=== PATIENT | female | born 1940 | race American Indian/Alaskan Native ===

== ENCOUNTER 2016-08-17 14:05 | Emergency (ER) | payer OTHER, MEDICARE ==
[2016-08-17 15:52] LABS: Anion Gap 18 mmol/L; BUN/Creatinine Ratio 16.66; Blood Urea Nitrogen 20 mg/dL (7-17); Calcium 9.1 mg/dL (8.4-10.2); Carbon Dioxide 24 mmol/L (22-30); Chloride 102.8 mmol/L (98-107); Glucose 77 mg/dL (65-100); Sodium 141 mmol/L (137-145)
[2016-08-17 16:02] LABS: Basophils % (Auto) 0.1 % (0.0-1.8); Eosinophils % (Auto) 1.3 % (0.0-4.3); Hematocrit 35.6 % (30.3-42.9); Hemoglobin 11.5 gm/dl (10.1-14.3); Mean Corpuscular HGB Conc 32 % (30-34); Mean Corpuscular Volume 80 fl (79-97); Platelet Count 172 K/mm3 (140-440); Red Blood Count 4.47 M/mm3 (3.65-5.03); Red Cell Distribution Width 15.8 % (13.2-15.2); White Blood Count 7.1 K/mm3 (4.5-11.0)
[2016-08-17 16:10] LABS: Mean Corpuscular Hemoglobin 26 pg (28-32)
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
[2016-08-17 22:48] VITALS: BP 156/86
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
== END 2016-08-17 22:30 | disposition home or self-care (01) ==
LOC: ED 14:05
DX: M25.532 Pain in left wrist (principal); M25.531 Pain in right wrist; M25.562 Pain in left knee; I10 Essential (primary) hypertension; Z86.73 Personal history of transient ischemic attack (TIA), and cerebral infarction without residual deficits; Z87.891 Personal history of nicotine dependence; V49.49XA Driver injured in collision with other motor vehicles in traffic accident, initial encounter; Y93.89 Activity, other specified; Y99.8 Other external cause status; Y92.488 Other paved roadways as the place of occurrence of the external cause
CPT/HCPCS: 36415; 80048; 84484; 85025; 93005; 93010

== ENCOUNTER 2017-03-16 15:09 | Emergency (ER) | payer MEDICARE ==
[2017-03-16 17:26] LABS: Basophils % (Auto) 0.2 % (0.0-1.8); Eosinophils # (Auto) 0.2 K/mm3 (0.0-0.4); Eosinophils % (Auto) 2.5 % (0.0-4.3); Hematocrit 37.6 % (30.3-42.9); Hemoglobin 12.3 gm/dl (10.1-14.3); Lymphocytes # (Auto) 1.7 K/mm3 (1.2-5.4); Mean Corpuscular HGB Conc 33 % (30-34); Mean Corpuscular Hemoglobin 26 pg (28-32); Mean Corpuscular Volume 80 fl (79-97); Monocytes # (Auto) 0.7 K/mm3 (0.0-0.8); Monocytes % (Auto) 9.2 % (0.0-7.3); Platelet Count 219 K/mm3 (140-440); Red Blood Count 4.69 M/mm3 (3.65-5.03); Red Cell Distribution Width 15.1 % (13.2-15.2)
[2017-03-16 17:48] LABS: Alanine Aminotransferase 11 units/L (7-56); Albumin 3.8 g/dL (3.9-5); BUN/Creatinine Ratio 16; Blood Urea Nitrogen 16 mg/dL (7-17); Calcium 9.3 mg/dL (8.4-10.2); Hemolysis Index 7
--- NOTE | 2017-03-17 01:12 | Emergency Department Report ---
ED General Adult HPI - General Chief complaint: Neuro Symptoms/Deficit Stated complaint: RIGHT FOOT PAIN Time Seen by Provider: 03/17/17 00:28 Source: patient Mode of arrival: Wheelchair Limitations: No Limitations - History of Present Illness Initial comments: Complaints right foot has been numb for 3 days not sure if it was sudden in onset does hx history of Sirena camara is currently on Ahlquist here for evaluation of numbness to the right foot, neg dvt study earlier, no cp no fever no color or temp changes to feet. no motor c/o, no urinary retention -: days(s), unknown - Related Data Previous Rx's Medication Instructions Recorded Last Taken Type Metoprolol [Lopressor TAB] 25 mg PO BID #60 tablet 01/23/15 Unknown Rx risperiDONE [RisperDAL] 0.25 mg PO BID #60 tablet 01/23/15 Unknown Rx Ibuprofen [Motrin] 400 mg PO Q8H PRN #15 tablet 03/17/17 Unknown Rx Allergies Allergy/AdvReac Type Severity Reaction Status Date / Time No Known Allergies Allergy Verified 03/16/17 16:38 ED Review of Systems ROS: Stated complaint: RIGHT FOOT PAIN Other details as noted in HPI Comment: All other systems reviewed and negative Constitutional: denies: diaphoresis, fever, malaise ENT: denies: dental pain, hearing loss, epistaxis Respiratory: denies: shortness of breath, SOB with exertion, SOB at rest, stridor Cardiovascular: denies: chest pain, palpitations, dyspnea on exertion, orthopnea , edema, syncope, paroxysmal nocturnal dyspnea Gastrointestinal: denies: abdominal pain, nausea, vomiting, diarrhea, constipation, hematemesis, melena, hematochezia Genitourinary: other (no incontinence no ). denies: dysuria, frequency, hematuria, discharge Skin: denies: rash, lesions, change in color, change in hair/nails, pruritus Neurological: numbness, paresthesias. denies: headache, weakness, abnormal gait , vertigo Psychiatric: denies: auditory hallucinations, visual hallucinations, suicidal thoughts Hematological/Lymphatic: denies: easy bruising ED Past Medical Hx - Past Medical History Hx Hypertension: Yes Hx CVA: Yes Hx Arthritis: Yes Additional medical history: "blood clots". afib - Surgical History Hx Appendectomy: Yes Hx Breast Surgery: Yes (Lumpectomy at 16 y/o) Additional Surgical History: cataract surgery 1 month ago - Social History Smoking Status: Never Smoker Substance Use Type: None - Medications Home Medications: Home Medications Medication Instructions Recorded Confirmed Last Taken Type Metoprolol [Lopressor TAB] 25 mg PO BID #60 tablet 01/23/15 Unknown Rx risperiDONE [RisperDAL] 0.25 mg PO BID #60 tablet 01/23/15 Unknown Rx Ibuprofen [Motrin] 400 mg PO Q8H PRN #15 tablet 03/17/17 Unknown Rx ED Physical Exam - General Limitations: No Limitations General appearance: alert, in no apparent distress - Head Head exam: Present: atraumatic, normocephalic - Eye Eye exam: Present: normal appearance, PERRL, EOMI - ENT ENT exam: Present: normal exam, normal orophraynx - Neck Neck exam: Present: normal inspection. Absent: tenderness, meningismus - Respiratory Respiratory exam: Present: normal lung sounds bilaterally. Absent: respiratory distress, wheezes, rales, rhonchi, stridor, chest wall tenderness, accessory muscle use, decreased breath sounds, prolonged expiratory - Cardiovascular Cardiovascular Exam: Present: regular rate, normal rhythm, normal heart sounds. Absent: systolic murmur, diastolic murmur, rubs, gallop - GI/Abdominal GI/Abdominal exam: Present: soft. Absent: distended, tenderness, guarding, rebound, rigid, mass, pulsatile mass - Extremities Exam Extremities exam: Present: normal capillary refill, other (decreased sensory to the dorsum of the right foot L4-L5 dermatome). Absent: pedal edema, joint swelling, calf tenderness - Back Exam Back exam: Present: normal inspection, other (no warmth or erythema). Absent: CVA tenderness (L), muscle spasm, paraspinal tenderness ED Course Vital Signs 03/16/17 16:38 Temperature 99 F Pulse Rate 68 Respiratory 16 Rate Blood Pressure 152/94 O2 Sat by Pulse 98 Oximetry - Reevaluation(s) Reevaluation #1: 03/17/17 04:17 Patient did have a negative Doppler for DVT. She is on a list. We did initially consider arterial insufficiency however the patient has no extreme color temperature chains would suggest perfusion abnormality. Symptoms did seem to be radicular CT of the lumbar was obtained this does show pinched nerve ED Medical Decision Making - Lab Data Result diagrams: 03/16/17 16:55 01/12/18 16:55 - Radiology Data Radiology results: report reviewed - Medical Decision Making Toes are downgoing no evidence of spinal cord compressive syndrome at this time patient does however have evidence of lumbar radiculopathy. She is stable for outpatient follow-up with referral to orthopedics abdomen soft nontender without mass Critical care attestation.: If time is entered above; I have spent that time in minutes in the direct care of this critically ill patient, excluding procedure time. ED Disposition Clinical Impression: Lumbar radiculopathy Disposition: - TO HOME OR SELFCARE Is pt being admited?: No Condition: Stable Instructions: Lumbar Radiculopathy (ED) Additional Instructions: Return if new alarming symptoms to the doctor listed Prescriptions: Ibuprofen [Motrin] 400 mg PO Q8H PRN #15 tablet PRN Reason: Pain Referrals: PRIMARY CAREMD [Primary Care Provider] - 3-5 Days ROEL MANRIQUEZ MD [Staff Physician] - 3-5 Days Time of Disposition: 04:21
--- NOTE | 2017-03-17 03:02 | Cat Scan Report ---
FINAL REPORT EXAM: CT L-Spine w/o Contrast CLINICAL INDICATIONS: LEG NUMBNESS FINDINGS: Unenhanced CT of the lumbar spine was performed and data was reformatted in the sagittal and coronal planes. There is a vacuum disc at T11-12. There is a minimal posterior disc bulge at this level which does not result in canal stenosis or nerve root impingement. No fracture is seen in the lumbar spine. At T12-L1, L1-L2, L2-L3 and L3-L4 there are no posterior disc abnormalities. There is no evidence of canal stenosis or nerve root impingement. At L4-L5 there is a vacuum disc. There is 0.5 cm anterolisthesis of L4 and L5. This results in mild right and moderate left foraminal narrowing with suspected mild impingement of the exiting left L4 nerve root. There is facet hypertrophy at this level. At L5-S1 there is a vacuum disc. There is a small posterior disc bulge which does not result in canal stenosis or nerve root impingement. There is considerable endplate sclerosis at this level. There is aortic atherosclerotic change without aneurysmal dilation of the aorta IMPRESSION: NO FRACTURE IS SEEN IN THE LUMBAR SPINE GRADE 1 DEGENERATIVE ANTEROLISTHESIS OF L4 ON L5 WITH SUSPECTED IMPINGEMENT OF EXITING LEFT L4 NERVE ROOT
[2017-03-17 05:06] VITALS: BP 131/79
--- NOTE | 2017-03-18 13:54 | Vascular Lab Report ---
Right Lower Extremity Venous Duplex Study: Reason for Exam: Pain and swelling of the right lower extremity. Comments on the Right: All veins visualized are freely compressible without evidence of internal echogenicity. Flow is spontaneous and phasic throughout. No evidence of acute or chronic thrombus is seen in any of the vessels visualized. A soft tissue change in the right knee area is consistent with a Yancey's cyst. Comments on the Left: A limited duplex study was done of the proximal veins of the left lower extremity. All veins visualized are freely compressible without evidence of internal echogenicity. Flow is spontaneous and phasic throughout. No evidence of acute or chronic thrombus is seen in any of the vessels visualized. Impression: No evidence of acute or chronic deep venous thrombosis in the right lower extremity. A soft tissue change in the right knee area is consistent with a Yancey's cyst.
== END 2017-03-17 05:04 | disposition home or self-care (01) ==
LOC: ED 15:09
DX: M54.16 Radiculopathy, lumbar region (principal); I10 Essential (primary) hypertension; M19.90 Unspecified osteoarthritis, unspecified site; Z86.73 Personal history of transient ischemic attack (TIA), and cerebral infarction without residual deficits
CPT/HCPCS: 36415; 72131; 80053; 85025; 99284

== ENCOUNTER 2017-04-30 17:20 | Outpatient (CLI) | payer MEDICARE ==
--- NOTE | 2017-05-01 12:25 | Magnetic Resonance Report ---
MRI LUMBAR SPINE WITHOUT CONTRAST HISTORY: Low back pain. TECHNIQUE: axial T1, T2. sagittal T1,T2, STIR. COMPARISON: none. FINDINGS: The conus terminates at L1. No signal abnormality or mass. The cauda equina is within normal limits. No central canal stenosis. 5 mm anterolisthesis of L4 with respect to L5 is identified which appears to be secondary to degenerative facet arthropathy. No pars defect is identified. The remaining lumbar vertebra are normal in alignment. No evidence for compression deformity or bone lesion. There is moderate diffuse disc desiccation. Moderate to severe disc space narrowing is noted at the lowest 2 levels. There is diffuse facet arthropathy which is most pronounced at L4-5. L1-2: No significant abnormality. L2-3: No significant abnormality. L3-4: A focal midline annular tear is identified. No associated protrusion. Mild facet arthropathy. L4-5: Mild diffuse posterior bulging disc lateralizes to the left side. Severe hypertrophic facet arthropathy. Mild hypertrophy of ligamentum flavum. Left neural foraminal narrowing is estimated at 25-50%. L5-S1: Severe disc space narrowing with circumferential spurring. A large right paracentral disc protrusion is identified which exerts mass effect on the right S1 nerve root within the spinal canal. Mild facet arthropathy. Bilateral neural foraminal narrowing is estimated at 25-50%. IMPRESSION: Multilevel lumbar spondylosis. Grade 1 anterolisthesis of L4 with respect L5. Large right paracentral disc protrusion with mass effect on the right S1 nerve root as described. Please correlate with the patient's clinical presentation.
== END 2017-04-30 17:21 | disposition home or self-care (01) ==
LOC: MRI 17:20
PROVIDERS: ATTEND Orthopaedic Surgery
DX: M47.896 Other spondylosis, lumbar region (principal); M51.36 Other intervertebral disc degeneration, lumbar region; M12.88 Other specific arthropathies, not elsewhere classified, other specified site; M24.28 Disorder of ligament, vertebrae
CPT/HCPCS: 72148

== ENCOUNTER 2020-05-22 11:01 | Inpatient (IN) | payer MEDICARE ==
--- NOTE | 2020-05-22 11:39 | Emergency Department Report ---
ED Altered Mental Status HPI - General Chief Complaint: Altered Mental Status Stated Complaint: AMS Time Seen by Provider: 05/22/20 11:13 Source: EMS Mode of arrival: Stretcher Limitations: Altered Mental Status - History of Present Illness Initial Comments: 79-year-old female, history of hypertension, A. fib, CVA, anxiety, presents to ED with altered mental status. Per EMS, reports patient was fine she woke up this morning. Talking normally. Patient went to lay back in bed. When lucianaban checked on her at around 10:30 AM patient was unresponsive. Upon EMS arrival, patient does not respond, eyes are closed. Patient has a gag reflex and seems to fight against anyone attempting to open her eyes. Accu-Chek was normal. Patient currently on Eliquis. Stroke alert called. MD Complaint: altered mental status -: minutes(s) (45) Time: 10:30 Severity: severe Consistency of Symptoms: constant Context: unknown - Related Data Previous Rx's Medication Instructions Recorded Last Taken Type Metoprolol [Lopressor TAB] 25 mg PO BID #60 tablet 01/23/15 Unknown Rx risperiDONE [RisperDAL] 0.25 mg PO BID #60 tablet 01/23/15 Unknown Rx Ibuprofen [Motrin] 400 mg PO Q8H PRN #15 tablet 03/17/17 Unknown Rx Allergies Allergy/AdvReac Type Severity Reaction Status Date / Time No Known Allergies Allergy Verified 03/16/17 16:38 ED Review of Systems ROS: Stated complaint: AMS Other details as noted in HPI Comment: Unobtainable due to pts medical conditions ED Past Medical Hx - Past Medical History Hx Hypertension: Yes Hx CVA: Yes Hx Arthritis: Yes Additional medical history: "blood clots". afib - Surgical History Hx Appendectomy: Yes Hx Breast Surgery: Yes (Lumpectomy at 16 y/o) Additional Surgical History: cataract surgery 1 month ago - Social History Smoking Status: Never Smoker Substance Use Type: None - Medications Home Medications: Home Medications Medication Instructions Recorded Confirmed Last Taken Type Metoprolol [Lopressor TAB] 25 mg PO BID #60 tablet 01/23/15 Unknown Rx risperiDONE [RisperDAL] 0.25 mg PO BID #60 tablet 01/23/15 Unknown Rx Ibuprofen [Motrin] 400 mg PO Q8H PRN #15 tablet 03/17/17 Unknown Rx ED Physical Exam - General Limitations: Altered Mental Status General appearance: obtunded - Head Head exam: Present: atraumatic, normocephalic - Eye Eye exam: Present: normal appearance, PERRL - ENT ENT exam: Present: mucous membranes moist - Neck Neck exam: Present: normal inspection - Respiratory Respiratory exam: Present: normal lung sounds bilaterally. Absent: respiratory distress - Cardiovascular Cardiovascular Exam: Present: normal rhythm, irregular rhythm - GI/Abdominal GI/Abdominal exam: Present: soft. Absent: distended, tenderness - Extremities Exam Extremities exam: Present: normal inspection - Neurological Exam Neurological exam: Present: altered, other (eyes closed, but fluttering; pt res ists me attempting to open eyes) - Skin Skin exam: Present: warm, dry, intact, normal color - Assessment Assessment Interval: Baseline - Level of Consciousness 1a. Level of Consciousness: resp stimuli/obtunded - LOC Questions 1b. LOC Questions: aphasic - LOC Command 1c. LOC Commands: performs no tasks correctly - Best Gaze 2. Best Gaze: normal - Visual 3. Visual: no visual loss - Facial Palsy 4. Facial Palsy: normal symmetrical movement - Motor Arm 5a. Motor Arm Left: no gravity effort 5b. Motor Arm Right: no gravity effort - Motor Leg 6a. Motor Leg Left: no gravity effort 6b. Motor Leg Right: no gravity effort - Limb Ataxia 7. Limb Ataxia: absent - Sensory 8. Sensory: normal - Best Language 9. Best Language: mute/global aphasia - Dysarthria 10. Dysarthria: normal - Extinction and Inattention 11. Extinction/Inattention: no abnormality - Scoring Total Score: 21 Stroke Severity: Severe Stroke ED Course Vital Signs 05/22/20 05/22/20 05/22/20 11:11 11:44 11:45 Temperature Pulse Rate 79 Respiratory 16 Rate Blood Pressure 183/106 O2 Sat by Pulse 97 99 98 Oximetry 05/22/20 05/22/20 05/22/20 11:52 12:00 12:16 Temperature 97.5 F L Pulse Rate Respiratory Rate Blood Pressure 165/106 167/114 O2 Sat by Pulse 97 97 Oximetry 05/22/20 05/22/20 05/22/20 12:30 12:46 13:00 Temperature Pulse Rate Respiratory Rate Blood Pressure 174/107 171/99 171/99 O2 Sat by Pulse 93 98 96 Oximetry 05/22/20 05/22/20 05/22/20 13:16 13:30 13:33 Temperature Pulse Rate 123 H Respiratory Rate Blood Pressure 175/106 142/87 170/110 O2 Sat by Pulse 97 96 Oximetry 05/22/20 05/22/20 05/22/20 13:46 14:00 14:16 Temperature Pulse Rate Respiratory Rate Blood Pressure 153/90 153/92 144/84 O2 Sat by Pulse 97 96 97 Oximetry 05/22/20 05/22/20 05/22/20 14:30 14:46 15:00 Temperature Pulse Rate Respiratory Rate Blood Pressure 158/108 137/91 139/86 O2 Sat by Pulse 96 97 97 Oximetry - Reevaluation(s) Reevaluation #1: 05/22/20 11:30 Unable to reach patient's on listed phone numbers: [phone] and [phone] Reevaluation #2: 05/22/20 13:20 Able to speak with patient's . States patient is currently seeing a neurologist for dementia. He reports some days patient's memory is normal and some days she is forgetful. States patient has no deficits from her previous CVA. reports this unresponsiveness has never happened before. There is a diagnosis of psychosis and paranoia in the chart, however states she has not had any recent episodes of this. He denies any other psychiatric diagnoses. States she is not taking any psych medications. Reevaluation #3: 05/22/20 13:29 No improvement with D50 or narcan. No withdrawal during ABG, however, pt's eyes fluttering more while closed and heart rate increased. - Consultations Consultation #1: 05/22/20 11:42 Spoke with teleneurologist. Patient not a candidate for TPA secondary to her taking Eliquis. He has reviewed the scans. No evidence of hemorrhage or large vessel occlusion, however will await official radiology read. - Lab Data Result diagrams: 05/22/20 11:47 05/22/20 11:47 Lab Results 05/22/20 05/22/20 05/22/20 Range/Units 11:47 11:47 11:47 WBC 5.1 (4.5-11.0) K/mm3 RBC 4.89 (3.65-5.03) M/mm3 Hgb 12.8 (10.1-14.3) gm/dl Hct 39.2 (30.3-42.9) % MCV 80 (79-97) fl MCH 26 L (28-32) pg MCHC 33 (30-34) % RDW 15.9 H (13.2-15.2) % Plt Count 150 (140-440) K/mm3 Lymph % (Auto) 19.8 (13.4-35.0) % Campbell % (Auto) 7.4 H (0.0-7.3) % Eos % (Auto) 0.3 (0.0-4.3) % Baso % (Auto) 0.1 (0.0-1.8) % Lymph # (Auto) 1.0 L (1.2-5.4) K/mm3 Campbell # (Auto) 0.4 (0.0-0.8) K/mm3 Eos # (Auto) 0.0 (0.0-0.4) K/mm3 Baso # (Auto) 0.0 (0.0-0.1) K/mm3 Seg Neutrophils % 72.4 H (40.0-70.0) % Seg Neutrophils # 3.7 (1.8-7.7) K/mm3 PT 13.5 (12.2-14.9) Sec. INR 1.05 (0.87-1.13) APTT 23.5 L (24.2-36.6) Sec. Thrombin Time 17.0 (15.1-19.6) Sec. Sodium 133 L (137-145) mmol/L Potassium 4.1 (3.6-5.0) mmol/L Chloride 97.4 L (98-107) mmol/L Carbon Dioxide 22 (22-30) mmol/L Anion Gap 18 mmol/L BUN 22 H (7-17) mg/dL Creatinine 1.5 H (0.6-1.2) mg/dL Estimated GFR 40 ml/min BUN/Creatinine Ratio 15 % Glucose 95 (65-100) mg/dL POC Glucose (70-105) mg/dL Lactic Acid (0.7-2.0) mmol/L Calcium 9.2 (8.4-10.2) mg/dL Total Bilirubin 0.50 (0.1-1.2) mg/dL AST 19 (5-40) units/L ALT 12 (7-56) units/L Alkaline Phosphatase 81 (35-129) units/L Total Creatine Kinase 176 H (30-135) units/L CK-MB (CK-2) 2.3 (0.0-4.0) ng/mL CK-MB (CK-2) Rel Index 1.3 (0-4) Troponin T < 0.010 (0.00-0.029) ng/mL Total Protein 7.3 (6.3-8.2) g/dL Albumin 3.8 L (3.9-5) g/dL Albumin/Globulin Ratio 1.1 % Urine Color (Yellow) Urine Turbidity (Clear) Urine pH (5.0-7.0) Ur Specific [place] (1.003-1.030) Urine Protein (Negative) mg/dL Urine Glucose (UA) (Negative) mg/dL Urine Ketones (Negative) mg/dL Urine Blood (Negative) Urine Nitrite (Negative) Urine Bilirubin (Negative) Urine Urobilinogen (<2.0) mg/dL Ur Leukocyte Esterase (Negative) Urine WBC (Auto) (0.0-6.0) /HPF Urine RBC (Auto) (0.0-6.0) /HPF Urine Mucus /HPF Salicylates (2.8-20.0) mg/dL Urine Opiates Screen Urine Methadone Screen Acetaminophen (10.0-30.0) ug/mL Ur Barbiturates Screen Ur Phencyclidine Scrn Ur Amphetamines Screen U Benzodiazepines Scrn Urine Cocaine Screen U Marijuana (THC) Screen Drugs of Abuse Note Plasma/Serum Alcohol (0-0.07) % 05/22/20 05/22/20 05/22/20 Range/Units 11:47 11:47 11:47 WBC (4.5-11.0) K/mm3 RBC (3.65-5.03) M/mm3 Hgb (10.1-14.3) gm/dl Hct (30.3-42.9) % MCV (79-97) fl MCH (28-32) pg MCHC (30-34) % RDW (13.2-15.2) % Plt Count (140-440) K/mm3 Lymph % (Auto) (13.4-35.0) % Campbell % (Auto) (0.0-7.3) % Eos % (Auto) (0.0-4.3) % Baso % (Auto) (0.0-1.8) % Lymph # (Auto) (1.2-5.4) K/mm3 Campbell # (Auto) (0.0-0.8) K/mm3 Eos # (Auto) (0.0-0.4) K/mm3 Baso # (Auto) (0.0-0.1) K/mm3 Seg Neutrophils % (40.0-70.0) % Seg Neutrophils # (1.8-7.7) K/mm3 PT (12.2-14.9) Sec. INR (0.87-1.13) APTT (24.2-36.6) Sec. Thrombin Time (15.1-19.6) Sec. Sodium (137-145) mmol/L Potassium (3.6-5.0) mmol/L Chloride (98-107) mmol/L Carbon Dioxide (22-30) mmol/L Anion Gap mmol/L BUN (7-17) mg/dL Creatinine (0.6-1.2) mg/dL Estimated GFR ml/min BUN/Creatinine Ratio % Glucose (65-100) mg/dL POC Glucose (70-105) mg/dL Lactic Acid (0.7-2.0) mmol/L Calcium (8.4-10.2) mg/dL Total Bilirubin (0.1-1.2) mg/dL AST (5-40) units/L ALT (7-56) units/L Alkaline Phosphatase (35-129) units/L Total Creatine Kinase (30-135) units/L CK-MB (CK-2) (0.0-4.0) ng/mL CK-MB (CK-2) Rel Index (0-4) Troponin T (0.00-0.029) ng/mL Total Protein (6.3-8.2) g/dL Albumin (3.9-5) g/dL Albumin/Globulin Ratio % Urine Color (Yellow) Urine Turbidity (Clear) Urine pH (5.0-7.0) Ur Specific [place] (1.003-1.030) Urine Protein (Negative) mg/dL Urine Glucose (UA) (Negative) mg/dL Urine Ketones (Negative) mg/dL Urine Blood (Negative) Urine Nitrite (Negative) Urine Bilirubin (Negative) Urine Urobilinogen (<2.0) mg/dL Ur Leukocyte Esterase (Negative) Urine WBC (Auto) (0.0-6.0) /HPF Urine RBC (Auto) (0.0-6.0) /HPF Urine Mucus /HPF Salicylates 0.3 L (2.8-20.0) mg/dL Urine Opiates Screen Urine Methadone Screen Acetaminophen 5.0 L (10.0-30.0) ug/mL Ur Barbiturates Screen Ur Phencyclidine Scrn Ur Amphetamines Screen U Benzodiazepines Scrn Urine Cocaine Screen U Marijuana (THC) Screen Drugs of Abuse Note Plasma/Serum Alcohol < 0.01 (0-0.07) % 05/22/20 05/22/20 05/22/20 Range/Units 11:47 12:06 12:06 WBC (4.5-11.0) K/mm3 RBC (3.65-5.03) M/mm3 Hgb (10.1-14.3) gm/dl Hct (30.3-42.9) % MCV (79-97) fl MCH (28-32) pg MCHC (30-34) % RDW (13.2-15.2) % Plt Count (140-440) K/mm3 Lymph % (Auto) (13.4-35.0) % Campbell % (Auto) (0.0-7.3) % Eos % (Auto) (0.0-4.3) % Baso % (Auto) (0.0-1.8) % Lymph # (Auto) (1.2-5.4) K/mm3 Campbell # (Auto) (0.0-0.8) K/mm3 Eos # (Auto) (0.0-0.4) K/mm3 Baso # (Auto) (0.0-0.1) K/mm3 Seg Neutrophils % (40.0-70.0) % Seg Neutrophils # (1.8-7.7) K/mm3 PT (12.2-14.9) Sec. INR (0.87-1.13) APTT (24.2-36.6) Sec. Thrombin Time (15.1-19.6) Sec. Sodium (137-145) mmol/L Potassium (3.6-5.0) mmol/L Chloride (98-107) mmol/L Carbon Dioxide (22-30) mmol/L Anion Gap mmol/L BUN (7-17) mg/dL Creatinine (0.6-1.2) mg/dL Estimated GFR ml/min BUN/Creatinine Ratio % Glucose (65-100) mg/dL POC Glucose (70-105) mg/dL Lactic Acid 1.70 (0.7-2.0) mmol/L Calcium (8.4-10.2) mg/dL Total Bilirubin (0.1-1.2) mg/dL AST (5-40) units/L ALT (7-56) units/L Alkaline Phosphatase (35-129) units/L Total Creatine Kinase (30-135) units/L CK-MB (CK-2) (0.0-4.0) ng/mL CK-MB (CK-2) Rel Index (0-4) Troponin T (0.00-0.029) ng/mL Total Protein (6.3-8.2) g/dL Albumin (3.9-5) g/dL Albumin/Globulin Ratio % Urine Color Yellow (Yellow) Urine Turbidity Clear (Clear) Urine pH 5.0 (5.0-7.0) Ur Specific [place] 1.030 (1.003-1.030) Urine Protein <15 mg/dl (Negative) mg/dL Urine Glucose (UA) Neg (Negative) mg/dL Urine Ketones Tr (Negative) mg/dL Urine Blood Neg (Negative) Urine Nitrite Neg (Negative) Urine Bilirubin Neg (Negative) Urine Urobilinogen < 2.0 (<2.0) mg/dL Ur Leukocyte Esterase Neg (Negative) Urine WBC (Auto) 1.0 (0.0-6.0) /HPF Urine RBC (Auto) < 1.0 (0.0-6.0) /HPF Urine Mucus Few /HPF Salicylates (2.8-20.0) mg/dL Urine Opiates Screen Negative Urine Methadone Screen Negative Acetaminophen (10.0-30.0) ug/mL Ur Barbiturates Screen Negative Ur Phencyclidine Scrn Negative Ur Amphetamines Screen Negative U Benzodiazepines Scrn Negative Urine Cocaine Screen Negative U Marijuana (THC) Screen Negative Drugs of Abuse Note Disclamer Plasma/Serum Alcohol (0-0.07) % 05/22/20 05/22/2021 Range/Units 12:10 13:20 14:14 WBC (4.5-11.0) K/mm3 RBC (3.65-5.03) M/mm3 Hgb (10.1-14.3) gm/dl Hct (30.3-42.9) % MCV (79-97) fl MCH (28-32) pg MCHC (30-34) % RDW (13.2-15.2) % Plt Count (140-440) K/mm3 Lymph % (Auto) (13.4-35.0) % Campbell % (Auto) (0.0-7.3) % Eos % (Auto) (0.0-4.3) % Baso % (Auto) (0.0-1.8) % Lymph # (Auto) (1.2-5.4) K/mm3 Campbell # (Auto) (0.0-0.8) K/mm3 Eos # (Auto) (0.0-0.4) K/mm3 Baso # (Auto) (0.0-0.1) K/mm3 Seg Neutrophils % (40.0-70.0) % Seg Neutrophils # (1.8-7.7) K/mm3 PT (12.2-14.9) Sec. INR (0.87-1.13) APTT (24.2-36.6) Sec. Thrombin Time (15.1-19.6) Sec. Sodium (137-145) mmol/L Potassium (3.6-5.0) mmol/L Chloride (98-107) mmol/L Carbon Dioxide (22-30) mmol/L Anion Gap mmol/L BUN (7-17) mg/dL Creatinine (0.6-1.2) mg/dL Estimated GFR ml/min BUN/Creatinine Ratio % Glucose (65-100) mg/dL POC Glucose 69 L 156 H (70-105) mg/dL Lactic Acid (0.7-2.0) mmol/L Calcium (8.4-10.2) mg/dL Total Bilirubin (0.1-1.2) mg/dL AST (5-40) units/L ALT (7-56) units/L Alkaline Phosphatase (35-129) units/L Total Creatine Kinase (30-135) units/L CK-MB (CK-2) (0.0-4.0) ng/mL CK-MB (CK-2) Rel Index (0-4) Troponin T < 0.010 (0.00-0.029) ng/mL Total Protein (6.3-8.2) g/dL Albumin (3.9-5) g/dL Albumin/Globulin Ratio % Urine Color (Yellow) Urine Turbidity (Clear) Urine pH (5.0-7.0) Ur Specific [place] (1.003-1.030) Urine Protein (Negative) mg/dL Urine Glucose (UA) (Negative) mg/dL Urine Ketones (Negative) mg/dL Urine Blood (Negative) Urine Nitrite (Negative) Urine Bilirubin (Negative) Urine Urobilinogen (<2.0) mg/dL Ur Leukocyte Esterase (Negative) Urine WBC (Auto) (0.0-6.0) /HPF Urine RBC (Auto) (0.0-6.0) /HPF Urine Mucus /HPF Salicylates (2.8-20.0) mg/dL Urine Opiates Screen Urine Methadone Screen Acetaminophen (10.0-30.0) ug/mL Ur Barbiturates Screen Ur Phencyclidine Scrn Ur Amphetamines Screen U Benzodiazepines Scrn Urine Cocaine Screen U Marijuana (THC) Screen Drugs of Abuse Note Plasma/Serum Alcohol (0-0.07) % - EKG Data -: EKG Interpreted by [facility] EKG shows normal: axis, QRS complexes, ST-T waves Rate: tachycardia (rate 104) Interpretation: no acute changes, other (Atrial fibrillation) - Radiology Data Radiology results: report reviewed, image reviewed - Medical Decision Making 79-year-old female presents to the ED with altered mental status since around 10:30 AM. Patient is nonverbal, nonresponsive to stimuli, however patient appears to be protecting her airway. EKG shows A. fib. Blood pressure is elevated. Stroke alert was called. Patient seen and evaluated by teleneurologist. CT head, CTA head and neck are unremarkable for any acute findings such as hemorrhage or large vessel occlusion. Patient is currently taking Eliquis and is not a candidate for TPA. Remainder of work-up is unremarkable. Patient was given Narcan without improvement of mental status. She was also given half amp of D50 for low normal glucose without improvement of mental status. No evidence of infection, patient is afebrile, WBCs are normal, chest x-ray is negative, UA is negative, lactic acid is normal. ABG is normal, no evidence of CO2 retention. Tox screen is negative. Patient has some mild renal insufficiency. Blood cultures were drawn, patient covered with 1 dose of antibiotics. Patient also given labetalol for her elevated blood pressure. Patient has remained stable during her ED stay. Spoke with hospitalist, Dr. Cruz, who will admit patient for further management. - Differential Diagnosis CVA, overdose, infection, Critical Care Time: Yes Critical care time in (mins) excluding proc time.: 35 Critical care attestation.: If time is entered above; I have spent that time in minutes in the direct care of this critically ill patient, excluding procedure time. Critical Care Time: 35 min ED Disposition Clinical Impression: Acute encephalopathy, Hypertensive emergency, Acute renal insufficiency Disposition: OP ADMIT IP TO THIS HOSP Is pt being admited?: Yes Condition: Stable Time of Disposition: 13:33
--- NOTE | 2020-05-22 11:42 | Consultation ---
Medications and Allergies Allergies Allergy/AdvReac Type Severity Reaction Status Date / Time No Known Allergies Allergy Verified 03/16/17 16:38 Home Medications Medication Instructions Recorded Confirmed Last Taken Type Metoprolol [Lopressor TAB] 25 mg PO BID #60 tablet 01/23/15 Unknown Rx risperiDONE [RisperDAL] 0.25 mg PO BID #60 tablet 01/23/15 Unknown Rx Ibuprofen [Motrin] 400 mg PO Q8H PRN #15 tablet 03/17/17 Unknown Rx Physical Examination - Vital Signs Vital Signs: Vital Signs Pulse Resp BP Pulse Ox 79 16 183/106 97 05/22/20 11:11 05/22/20 11:11 05/22/20 11:11 05/22/20 11:11 Assessment and Plan [facility] Consult Note # Demographics Consult Type: 0-6 hour Stroke First Name: STUART Last Name: CORTNEY Date of : 1940 Age: 79 Gender: female Time of initial page ([employer] Time): 05-22-2020, 09:23 Time of return call ([facility] Time): 05-22-2020, 09:23 # HPI Additional History: 79F up and normal this AM, went and lay back down 09:30, then checked on her and she was unresponsive. Still not responsive. Not opening eyes or responding. Does reportedly resist eye opening. On eliquis reportedly. # Scores Level of Consciousness 1a: [3] = Responds only with reflex motor or unresponsive LOC Questions 1b: [2] = Answers neither correctly LOC Commands 1c: [0] = Performs both tasks correctly Best Gaze 2: [0] = Normal Visual 3: [0] = No visual loss Facial Palsy 4: [0] = Normal symmetrical movements Motor Arm Left 5a: [3] = No effort against gravity Motor Arm Right 5b: [3] = No effort against gravity Motor Leg Left 6a: [3] = No effort against gravity Motor Leg Right 6b: [3] = No effort against gravity Limb Ataxia 7: [0] = Absent Sensory 8: [0] = Normal Best Language 9: [3] = Mute Dysarthria 10: [0] = Normal Extinction and Inattention 11: [0] = No abnormality NIHSS Total: 20 # PMH-FH-SH Medications: NOAC, eliquis. # Exam Additional Neuro Exam: Patient not able to participate in examination. # Data Time Head CT personally ready by me ([place] Time): 05-22-2020, 09:29:[address]: preliminarily reviewed by me, please refer to radiology read for official reading, no bleed, old bilateral strokes. CTA Head: preliminarily reviewed by me, please refer to radiology read for official reading, no large vessel occlusion # Assessment Impression: Altered Mental Status, not with severe unilateral deficit, so could be alterative to stroke such as seizure, encephalopathy clinically. # Plan Thrombolytic/Intervention: NOT IV Alteplase or IA Intervention Alteplase Exclusion (<3 hour window): actively on NOAC Intraarterial Exclusion: no large vessel occlusion (LVO) Imaging: (urgency: routine admission): MRI Brain without contrast Diagnostic Test: EEG Other: I have discussed my recommendations with the referring provider Additional Recommendations: ok to continue eliquis or bridge with lovenox or heparin from my perspective. If radiology identifies branch LVO could be candidate for IA. Disposition: admit
--- NOTE | 2020-05-22 12:01 | Cat Scan Report ---
CT HEAD WITHOUT CONTRAST HISTORY: Unresponsive COMPARISON: None TECHNIQUE: CT imaging of the head was performed in the axial, sagittal, and coronal projections and bone algori thm in axial projection in the soft tissue algorithm. All CT scans at this location are performed using CT dose reduction for ALARA by means of automated e xposure control. CONTRAST: None. FINDINGS: Cerebral and Cerebellar Hemispheres: Diffuse cerebral atrophy is present. Deep white matter disease c onsistent with microangiopathy present No evidence of mass or mass effect. No midline shift. No acu te hemorrhage. Old infarcts noted posterior aspect of the right and left parietal lobes. No acute cor tical infarction. No extra-axial fluid collection. Ventricles: Normal in size and configuration for age. Osseous Structures: No significant abnormality. Visualized Paranasal Sinuses: No significant abnormality. Additional Findings: None IMPRESSION: 1. No acute intracranial abnormality. 2. Diffuse cerebral atrophy and deep white matter disease of moderate severity 3. Evidence of old -infarctions both parietal lobes NOTE: Acute infarct may not be visible by noncontrast CT. CODE STROKE: Time of Communication (COMPUTER PROGRAMMER/CDT): 1055 hours Central time Licensed Practitioner Receiving Report: Dr. Webster was notified of these findings by Dr. Deluca Signer Name: Ray Deluca MD Signed: 05/22/2020 11:57 AM Workstation Name: [id number]
--- NOTE | 2020-05-22 12:07 | XRay Report ---
CHEST 1 VIEW INDICATION / CLINICAL INFORMATION: AMS. COMPARISON: None available. FINDINGS: SUPPORT DEVICES: None. HEART / MEDIASTINUM: Cardiac silhouette is mildly enlarged. LUNGS / PLEURA: There is mild interstitial pulmonary edema without significant pleural effusion or fo griselda pneumonia. No pneumothorax. ADDITIONAL FINDINGS: No significant additional findings. IMPRESSION: 1. Mild cardiomegaly with mild interstitial pulmonary edema. Signer Name: Jennifer Alfred MD Signed: 05/22/2020 12:03 PM Workstation Name: [id number]
[2020-05-22 12:11] LABS: Basophils % (Auto) 0.1 % (0.0-1.8); Eosinophils % (Auto) 0.3 % (0.0-4.3); Hematocrit 39.2 % (30.3-42.9); Hemoglobin 12.8 gm/dl (10.1-14.3); Lymphocytes % (Auto) 19.8 % (13.4-35.0); Mean Corpuscular HGB Conc 33 % (30-34); Mean Corpuscular Volume 80 fl (79-97); Monocytes # (Auto) 0.4 K/mm3 (0.0-0.8); Monocytes % (Auto) 7.4 % (0.0-7.3); Platelet Count 150 K/mm3 (140-440); Red Blood Count 4.89 M/mm3 (3.65-5.03); Red Cell Distribution Width 15.9 % (13.2-15.2)
[2020-05-22] MEDS ORDERED: DEXTROSE 50% IN WATER (25GM) 50 ML SYRINGE IV ONE (12:15)
[2020-05-22] MEDS ORDERED: NALOXONE 0.4 MG/1 ML INJ IV ONE (12:15)
[2020-05-22 12:25] LABS: INR 1.05 (0.87-1.13)
[2020-05-22 12:26] LABS: Partial Thromboplastin Time 23.5 Sec. (24.2-36.6)
[2020-05-22 12:29] LABS: Creatine Kinase MB 2.3 ng/mL (0.0-4.0)
--- NOTE | 2020-05-22 12:30 | Cat Scan Report ---
CTA neck without and with intravenous contrast material CLINICAL HISTORY: MAIN TECHNIQUE: Following acquisition of a timing bolus 0.625 mm thick contiguous axial scans were obtained from aort ic arch to the skull base during rapid bolus intravenous contrast infusion. In addition to evaluation of axial source images multiplanar reconstructions were produced and reviewed for this report. 3 kelechi ne MIP reconstructions were produced and reviewed. Contrast dose report: Omnipaque 350: 100 ml, administered intravenously All CT examinations performed at this facility utilize modulated dose reduction, iterative reconstruc tion or weight-based dosing, as appropriate, to obtain a radiation dose which is as low as can reason ably be achieved. FINDINGS: Limitations: Left upper extremity contrast injection was performed. 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 This secondary to com pression of this venous structure between the aorta and sternum. This led to suboptimal opacification of the arterial structures of the neck and head. Calcifications for extensive contrast opacification of venous structures throughout the paraspinous region extending up to the skull base. HEART AND SUPERIOR MEDIASTINUM: There is a large tissue attenuation region along the superior anterio r aspect of the left atrium which shows absent contrast enhancement. Possibility of mural thrombus or atrial myxoma should be considered. Correlation with echocardiography is advised. Thoracic aorta:No abnormalities are identified along the course of the thoracic aorta..The origins of the great vessels have an unremarkable appearance. Brachiocephalic artery and left common carotid ar caio origin. Evaluation of the left subclavian artery is limited secondary to dense contrast in the a djacent venous structures. Right carotid artery: Calcified atherosclerotic plaque is observed at the right carotid bulb. There is no associated stenosis. Right common carotid artery and cervical portion s of the R ICA have an unremarkable appearance. Left carotid artery: Evaluation of the proximal left common carotid artery is limited secondary to be am hardening artifact from dense contrast within adjacent venous structures. No abnormalities are not ed along the course of the left common carotid artery, at the left carotid bifurcation or along the c ourse of the cervical segments of the LICA. Posterior circulation:The vertebral arteries have an unremarkable appearance. Both vertebral arteries contribute to the basilar artery origin. The basilar artery has an unremarkable appearance. The degree of stenosis, if any, is determined utilizing NASCET like criteria. In this case there is no indication of hemodynamically significant stenosis at the carotid bifurcations or elsewhere. As described above left atrial mural thrombus is suspected. Evaluation of the nonvascular soft tissue structures reveal no additional abnormality. There is no indication of cervical lymphadenopathy. No abnormalities are seen along the course of the airway. Visualized portions of the parotid glands and the submandibular salivary glands have a normal appearance. Thyroid gland has a normal appearance. Ev aluation of the lung apices reveals no evidence of lung nodule or infiltrate. Evaluation of the cervical spine is remarkable for widespread cervical spondylosis. No evidence of ce ntral canal stenosis. IMPRESSION: 1. Region of nonopacification in the superior aspect of the left atrium. Recommend echocardiography t o evaluate for possible mural thrombus in the left atrium. 2. No indication of hemodynamically significant stenosis at the carotid bifurcations or elsewhere. 3. Left subclavian artery evaluation is limited secondary to the presence of dense contrast in the ad jacent venous structures. Signer Name: Yobani Cobb MD Signed: 05/22/2020 12:26 PM Workstation Name: [id number]
[2020-05-22 12:31] LABS: Alanine Aminotransferase 12 units/L (7-56); Albumin 3.8 g/dL (3.9-5); BUN/Creatinine Ratio 15; Blood Urea Nitrogen 22 mg/dL (7-17); Calcium 9.2 mg/dL (8.4-10.2); Hemolysis Index 7
[2020-05-22 12:35] LABS: Bilirubin,Urine NEG (Negative); Blood,Urine NEG (Negative); Color,Urine Yellow (Yellow); Mucus,Urine FEW /HPF; Protein,Urine <15 mg/dL mg/dL (Negative); RBC,Urine < 1.0 /HPF (0.0-6.0); Urobilinogen,Urine < 2.0 mg/dL (<2.0)
--- NOTE | 2020-05-22 12:36 | Cat Scan Report ---
CTA head with intravenous contrast CLINICAL HISTORY: MAIN TECHNIQUE: 0.625 mm thick contiguous axial scans were obtained from the skull base to the skull vertex during r apid bolus administration of intravenous contrast material. Multiplanar reconstructions were produced in the coronal and sagittal planes. In addition 3 plane MIP instructions were produced and reviewed for this report. The axial source images and reconstructed images were reviewed for this report. CONTRAST DOSE REPORT: Omnipaque 350: 100 ml administered intravenously. All CT scans at this location are performed using CT dose reduction for ALARA by means of automated e xposure control. FINDINGS: Internal carotid arteries:Sly, cavernous, opthalmic, clinoid and supraclinoid segments of the ICAs have an unremarkable appearance. Middle cerebral arteries:Normal and symmetrical M1 segments of the middle cerebral arteries are demon strated. No abnormalities are seen on evaluation of the insular or opercular branches. Anterior cerebral arteries:Bilaterally symmetrical A1 segments are demonstrated. No abnormalities are seen along the course of the A2 segments or their visualized pericallosal branches. Vertebral arteries: Left vertebral artery is dominant. Both vertebral arteries reach the basilar daniel ry origin. Basilar artery: Basilar artery is diminutive in caliber likely due to the presence of large bilateral posterior communicating arteries. Posterior cerebral arteries: Bilaterally symmetrical posterior cerebral arteries are identified. Dural sinuses: Dural sinuses are incompletely evaluated on this study. Note is made of reflux of dens e contrast up into the left sigmoid and transverse sinuses bilaterally. Dense contrast reflux is also observed in the distal superior sagittal sinus. Similar findings are seen to a lesser degree in the right transverse sinus and right sigmoid sinus. IMPRESSION: 1. No indication of intracranial stenosis or large vessel occlusion. Signer Name: Yobani Cobb MD Signed: 05/22/2020 12:31 PM Workstation Name: [id number]
[2020-05-22 12:39] LABS: Amphetamine Screen,Urine Negative; Benzodiazepines Screen,Urine Negative; Cannabinoid Screen,Urine Negative; Cocaine Screen,Urine Negative; Methadone Screen,Urine Negative; Opiate Screen,Urine Negative
[2020-05-22] MEDS ORDERED: CEFEPIME/NS 2 GM/100 ML 2 GM/100 ML BAG IV ONE (13:10)
[2020-05-22 13:24] LABS: ABG Base Excess -0.3 mmol/L (-2.0-3.0); ABG HCO3 23.9 mmol/L (20.0-26.0); ABG Methemoglobin 0.4 % (0.0-1.5); ABG Oxygen Saturation 96.8 % (95.0-99.0); ABG PCO2 37.8 mm Hg; ABG PH 7.418 pH Units (7.350-7.450); ABG PO2 81.2 mm Hg (80.0-90.0)
--- NOTE | 2020-05-22 13:29 | History and Physical Report ---
History of Present Illness Chief complaint: She stopped responding History of present illness: 79 YO Female with HTN, Atrial Fib on Therapeutic Anticoagulation with Eliquis, CVA, Anxiety, Vascular Dementia with Behavioral Disturbance, Cerebral Atherosclerosis, OA presents to ED for evaluation. Pt is confused with dimi nished cognition at the time of my evaluation and is unable to provide history. Patient history taken from EMS staff, ED staff as well as the patient family who are available to speak by telephone. As per family, the patient has experienced increased confusion and agitation over the past 2 weeks with persistently worsening symptoms over the same timeframe. Patient was found to have decreased responsiveness today at around 1030 hrs. EMS was notified and upon arrival the patient was found to be in distress and subsequently transported to [facility] for further care and evaluation of the aforementioned symptoms. The patient was seen and evaluated in the emergency department. All lab and imaging studies reviewed. Patient found to have metabolic encephalopathy, hyponatremia, volume depletion, as well as acute kidney injury with acute tubular necrosis. The patient admitted to medical floor and initiated on IV fluid resuscitation therapy. No reports of fever, chills, chest pain, palpitations, productive cough, skin rash, trauma, recent ill contacts, or known exposure to COVID-19. No prior admission for review. All medication listed at time of admission has been reconciled. Advanced care planning conducted in ED. Patient has diminished cognition but has a positive gag reflex and is able to protect her airway without difficulty. Past History Past Medical History: atrial fib, hypertension, stroke Past Surgical History: appendectomy, cataract removal, Other (Breast surgery) Social history: , lives with family Family history: hypertension Medications and Allergies Allergies Allergy/AdvReac Type Severity Reaction Status Date / Time No Known Allergies Allergy Verified 03/16/17 16:38 Home Medications Medication Instructions Recorded Confirmed Last Taken Type Metoprolol [Lopressor TAB] 25 mg PO BID #60 tablet 01/23/15 Unknown Rx risperiDONE [RisperDAL] 0.25 mg PO BID #60 tablet 01/23/15 Unknown Rx Ibuprofen [Motrin] 400 mg PO Q8H PRN #15 tablet 03/17/17 Unknown Rx Active Meds: Active Medications Cefepime HCl (Cefepime/Ns 2 Gm/100 Ml) 2 gm in 100 mls @ 200 mls/hr IV ONCE ONE; Protocol Stop: 05/22/20 13:39 Review of Systems ROS unobtainable: due to mental status Exam - Constitutional Vitals: Temp Pulse Resp BP Pulse Ox 97.5 F L 79 16 171/99 96 05/22/20 11:52 05/22/20 11:11 05/22/20 11:11 05/22/20 13:00 05/22/20 13:00 General appearance: Present: mild distress, obese - EENT Eyes: Present: PERRL ENT: hearing intact, clear oral mucosa, other (Oral mucosa dry) - Neck Neck: Present: supple, normal ROM - Respiratory Respiratory effort: normal Respiratory: bilateral: CTA - Cardiovascular Heart Sounds: Present: S1 & S2. Absent: rub, click - Extremities Extremities: pulses symmetrical, No edema Peripheral Pulses: within normal limits - Abdominal General gastrointestinal: Present: soft, non-tender, non-distended, normal bowel sounds Female genitourinary: Present: normal - Integumentary Integumentary: Present: clear, warm, dry - Musculoskeletal Musculoskeletal: gait normal, strength equal bilaterally - Psychiatric Psychiatric: appropriate mood/affect, intact judgment & insight - Neurologic Neurologic: CNII-XII intact, moves all extremities HEART Score - HEART Score Troponin: Troponin T < 0.010 ng/mL (0.00-0.029) 05/22/20 11:47 Results - Labs CBC & Chem 7: 05/22/20 11:47 05/22/20 11:47 Labs: Abnormal lab results 05/22/20 05/22/20 05/22/20 Range/Units 11:47 11:47 11:47 MCH 26 L (28-32) pg RDW 15.9 H (13.2-15.2) % Ferry % (Auto) 7.4 H (0.0-7.3) % Lymph # (Auto) 1.0 L (1.2-5.4) K/mm3 Seg Neutrophils % 72.4 H (40.0-70.0) % APTT 23.5 L (24.2-36.6) Sec. Sodium 133 L (137-145) mmol/L Chloride 97.4 L (98-107) mmol/L BUN 22 H (7-17) mg/dL Creatinine 1.5 H (0.6-1.2) mg/dL POC Glucose (70-105) mg/dL Total Creatine Kinase 176 H (30-135) units/L Albumin 3.8 L (3.9-5) g/dL Salicylates (2.8-20.0) mg/dL Acetaminophen (10.0-30.0) ug/mL 05/22/20 05/22/20 05/22/20 Range/Units 11:47 11:47 12:10 MCH (28-32) pg RDW (13.2-15.2) % Ferry % (Auto) (0.0-7.3) % Lymph # (Auto) (1.2-5.4) K/mm3 Seg Neutrophils % (40.0-70.0) % APTT (24.2-36.6) Sec. Sodium (137-145) mmol/L Chloride (98-107) mmol/L BUN (7-17) mg/dL Creatinine (0.6-1.2) mg/dL POC Glucose 69 L (70-105) mg/dL Total Creatine Kinase (30-135) units/L Albumin (3.9-5) g/dL Salicylates 0.3 L (2.8-20.0) mg/dL Acetaminophen 5.0 L (10.0-30.0) ug/mL 05/22/20 Range/Units 13:20 MCH (28-32) pg RDW (13.2-15.2) % Ferry % (Auto) (0.0-7.3) % Lymph # (Auto) (1.2-5.4) K/mm3 Seg Neutrophils % (40.0-70.0) % APTT (24.2-36.6) Sec. Sodium (137-145) mmol/L Chloride (98-107) mmol/L BUN (7-17) mg/dL Creatinine (0.6-1.2) mg/dL POC Glucose 156 H (70-105) mg/dL Total Creatine Kinase (30-135) units/L Albumin (3.9-5) g/dL Salicylates (2.8-20.0) mg/dL Acetaminophen (10.0-30.0) ug/mL Assessment and Plan - Patient Problems (1) Metabolic encephalopathy Current Visit: Yes Status: Acute Plan to address problem: CT head, neuro check, BMP, seizure precaution, aspiration precautions, fall precautions, supportive care (2) Vascular dementia with behavioral disturbance Current Visit: Yes Status: Acute Plan to address problem: Verbal prompting, verbal redirection, supportive care, benzodiazepine therapy as clinically indicated. (3) Cerebral atherosclerosis Current Visit: Yes Status: Acute Plan to address problem: Antiplatelet therapy, supportive care, risk factor reduction. (4) Acute kidney injury (ALYSSA) with acute tubular necrosis (ATN) Current Visit: Yes Status: Acute Plan to address problem: IV fluid resuscitation therapy, monitor urine output every shift, BMP, repeat BMP in a.m. to monitor serum creatinine as well as GFR, (5) Atrial fibrillation Current Visit: Yes Status: Acute Qualifiers: Atrial fibrillation type: longstanding persistent Qualified Code(s): I48.11 - Longstanding persistent atrial fibrillation Plan to address problem: Therapeutic anticoagulation, rate control, supportive care, continue medical management (6) History of CVA (cerebrovascular accident) Current Visit: No Status: Chronic Plan to address problem: Supportive care, antiplatelet therapy, continue medical management. (7) DVT prophylaxis Current Visit: Yes Status: Acute Plan to address problem: SCD to bilateral lower extremities while in bed, continue therapeutic anticoagulation (8) Advance care planning Current Visit: Yes Status: Acute Plan to address problem: Disease education conducted, patient is full code, care plan discussed, prognosis discussed, diagnosis discussed, +30 minutes.
[2020-05-22] MEDS ORDERED: ONDANSETRON 4 MG/2 ML INJ IV PRN (13:31)
[2020-05-22] MEDS ORDERED: ACETAMINOPHEN 325 MG TAB PO PRN (13:31)
[2020-05-22] MEDS: risperiDONE 0.25 MG TAB PO SCH (22:00)
[2020-05-22] MEDS: METOPROLOL TARTRATE 25 MG TAB PO SCH (22:00)
[2020-05-23] MEDS ORDERED: ALPRAZolam 0.25 MG TAB PO ONE (01:00)
[2020-05-23 07:35] LABS: Basophils % (Auto) 0.3 % (0.0-1.8); Eosinophils # (Auto) 0.1 K/mm3 (0.0-0.4); Eosinophils % (Auto) 1.2 % (0.0-4.3); Hemoglobin 12.1 gm/dl (10.1-14.3); Lymphocytes # (Auto) 0.9 K/mm3 (1.2-5.4); Lymphocytes % (Auto) 17.7 % (13.4-35.0); Mean Corpuscular HGB Conc 33 % (30-34); Mean Corpuscular Volume 79 fl (79-97); Monocytes # (Auto) 0.7 K/mm3 (0.0-0.8); Monocytes % (Auto) 13.9 % (0.0-7.3); Platelet Count 156 K/mm3 (140-440); Red Blood Count 4.65 M/mm3 (3.65-5.03); Red Cell Distribution Width 15.5 % (13.2-15.2)
[2020-05-23 07:50] LABS: Albumin 3.4 g/dL (3.9-5); Calcium 8.8 mg/dL (8.4-10.2)
--- NOTE | 2020-05-23 11:20 | Progress Note ---
Assessment and Plan Assessment and plan: 79 YO Female with HTN, Atrial Fib on Therapeutic Anticoagulation with Eliquis, CVA, Anxiety, Vascular Dementia with Behavioral Disturbance, Cerebral Atherosclerosis, OA presents to ED for evaluation. Pt is confused with diminished cognition at the time of my evaluation and is unable to provide history. Patient history taken from EMS staff, ED staff as well as the patient family who are available to speak by telephone. As per family, the patient has experienced increased confusion and agitation over the past 2 weeks with persistently worsening symptoms over the same timeframe. Patient was found to have decreased responsiveness today at around 1030 hrs. EMS was notified and upon arrival the patient was found to be in distress and subsequently transported to [facility] for further care and evaluation of the aforementioned symptoms. The patient was seen and evaluated in the emergency department. All lab and imaging studies reviewed. Patient found to have metabolic encephalopathy, hyponatremia, volume depletion, as well as acute kidney injury with acute tubular necrosis. The patient admitted to medical floor and initiated on IV fluid resuscitation therapy. No reports of fever, chills, chest pain, palpitations, productive cough, skin rash, trauma, recent ill contacts, or known exposure to COVID-19. No prior admission for review. All medication listed at time of admission has been reconciled. Advanced care planning conducted in ED. Patient has diminished cognition but has a positive gag reflex and is able to protect her airway without difficulty. 05/[address] of the head and Neck Has been negative for acute stroke. There is noted evidence of old infarcts in the bilateral parietal lobes. Patient continues to make remarkable hand gestures and quit both on her breath. While I believe that this may be more psychiatric than medical we will proceed with stroke work-up including MRI of the brain get neurology evaluation PT OT and speech. Start on aspirin and statin therapy. We will also get psychiatric evaluation. Also obtain an echocardiogram to evaluate for suspected mural thrombus. Spoke to who confirms stroke 8 years ago and concerned about her taking too many medicine. (1) Metabolic encephalopathy Current Visit: Yes Status: Acute Plan to address problem: CT head, neuro check, BMP, seizure precaution, aspiration precautions, fall pre cautions, supportive care (2) Vascular dementia with behavioral disturbance Current Visit: Yes Status: Acute Plan to address problem: Verbal prompting, verbal redirection, supportive care, benzodiazepine therapy as clinically indicated. (3) Cerebral atherosclerosis Current Visit: Yes Status: Acute Plan to address problem: Antiplatelet therapy, supportive care, risk factor reduction. (4) Acute kidney injury (ALYSSA) with acute tubular necrosis (ATN) Current Visit: Yes Status: Acute Plan to address problem: IV fluid resuscitation therapy, monitor urine output every shift, BMP, repeat BMP in a.m. to monitor serum creatinine as well as GFR, (5) Atrial fibrillation Current Visit: Yes Status: Acute Qualifiers: Atrial fibrillation type: longstanding persistent Qualified Code(s): I48.11 - Longstanding persistent atrial fibrillation Plan to address problem: Therapeutic anticoagulation, rate control, supportive care, continue medical management (6) History of CVA (cerebrovascular accident) Current Visit: No Status: Chronic Plan to address problem: Supportive care, antiplatelet therapy, continue medical management. (7) DVT prophylaxis Current Visit: Yes Status: Acute Plan to address problem: SCD to bilateral lower extremities while in bed, continue therapeutic anticoagulation (8) Advance care planning Current Visit: Yes Status: Acute Plan to address problem: Disease education conducted, patient is full code, care plan discussed, prognosis discussed, diagnosis discussed, +30 minutes. History Interval history: Patient seen and examined, making hand gestures but not speaking. Hospitalist Physical - Physical exam Narrative exam: VITAL SIGNS: Reviewed. GENERAL: The patient appears normally developed, Vital signs as documented. HEAD: No signs of head trauma. EYES: Pupils are equal. Extraocular motions intact. EARS: Hearing grossly intact. MOUTH: Oropharynx is normal. NECK: No adenopathy, no JVD. CHEST: Chest with clear breath sounds bilaterally. No wheezes, rales, or rhonchi. CARDIAC: Regular rate and rhythm. S1 and S2, without murmurs, gallops, or rubs. VASCULAR: No Edema. Peripheral pulses normal and equal in all extremities. ABDOMEN: Soft, non tender and non distended. No rebound or guarding, and no masses palpated. Bowel Sounds normal. MUSCULOSKELETAL: Good range of motion of all major joints. Extremities without clubbing, cyanosis or edema. NEUROLOGIC EXAM: Alert and oriented x 3 No focal sensory or strength deficits. Aphasic. Follows commands. PSYCHIATRIC: Mood normal. SKIN: detail exam as documented in skin assessment - Constitutional Vitals: Temp Pulse Resp BP Pulse Ox 98.8 F 107 H 18 140/70 97 05/23/20 05:00 05/23/20 05:00 05/23/20 05:00 05/23/20 05:00 05/23/20 05:00 General appearance: Present: mild distress, obese HEART Score - HEART Score Troponin: Troponin T < 0.010 ng/mL (0.00-0.029) 05/22/20 14:14 Results - Labs CBC & Chem 7: 05/23/20 06:57 05/23/20 06:57 Labs: Laboratory Last Values WBC 4.9 K/mm3 (4.5-11.0) 05/23/20 06:57 RBC 4.65 M/mm3 (3.65-5.03) 05/23/20 06:57 Hgb 12.1 gm/dl (10.1-14.3) 05/23/20 06:57 Hct 37.0 % (30.3-42.9) 05/23/20 06:57 MCV 79 fl (79-97) 05/23/20 06:57 MCH 26 pg (28-32) L 05/23/20 06:57 MCHC 33 % (30-34) 05/23/20 06:57 RDW 15.5 % (13.2-15.2) H 05/23/20 06:57 Plt Count 156 K/mm3 (140-440) 05/23/20 06:57 Lymph % (Auto) 17.7 % (13.4-35.0) 05/23/20 06:57 [place] % (Auto) 13.9 % (0.0-7.3) H 05/23/20 06:57 Eos % (Auto) 1.2 % (0.0-4.3) 05/23/20 06:57 Baso % (Auto) 0.3 % (0.0-1.8) 05/23/20 06:57 Lymph # (Auto) 0.9 K/mm3 (1.2-5.4) L 05/23/20 06:57 [place] # (Auto) 0.7 K/mm3 (0.0-0.8) 05/23/20 06:57 Eos # (Auto) 0.1 K/mm3 (0.0-0.4) 05/23/20 06:57 Baso # (Auto) 0.0 K/mm3 (0.0-0.1) 05/23/20 06:57 Seg Neutrophils % 66.9 % (40.0-70.0) 05/23/20 06:57 Seg Neutrophils # 3.3 K/mm3 (1.8-7.7) 05/23/20 06:57 PT 13.5 Sec. (12.2-14.9) 05/22/20 11:47 INR 1.05 (0.87-1.13) 05/22/20 11:47 APTT 23.5 Sec. (24.2-36.6) L 05/22/20 11:47 Thrombin Time 17.0 Sec. (15.1-19.6) 05/22/20 11:47 ABG pH 7.418 pH Units (7.350-7.450) 05/22/20 Unknown ABG pCO2 37.8 mm Hg 05/22/20 Unknown ABG pO2 81.2 mm Hg (80.0-90.0) 05/22/20 Unknown ABG HCO3 23.9 mmol/L (20.0-26.0) 05/22/20 Unknown ABG O2 Saturation 96.8 % (95.0-99.0) 05/22/20 Unknown ABG O2 Content 17.6 (0.0-44) 05/22/20 Unknown ABG Base Excess -0.3 mmol/L (-2.0-3.0) 05/22/20 Unknown ABG Hemoglobin 13.1 gm/dl (12.0-16.0) 05/22/20 Unknown ABG Carboxyhemoglobin 1.5 % (0.0-5.0) 05/22/20 Unknown ABG Methemoglobin 0.4 % (0.0-1.5) 05/22/20 Unknown Oxyhemoglobin 95.0 % (95.0-99.0) 05/22/20 Unknown FiO2 21 % 05/22/20 Unknown Sodium 140 mmol/L (137-145) D 05/23/20 06:57 Potassium 4.1 mmol/L (3.6-5.0) 05/23/20 06:57 Chloride 103.5 mmol/L (98-107) 05/23/20 06:57 Carbon Dioxide 23 mmol/L (22-30) 05/23/20 06:57 Anion Gap 18 mmol/L 05/23/20 06:57 BUN 19 mg/dL (7-17) H 05/23/20 06:57 Creatinine 1.4 mg/dL (0.6-1.2) H 05/23/20 06:57 Estimated GFR 44 ml/min 05/23/20 06:57 BUN/Creatinine Ratio 14 % 05/23/20 06:57 Glucose 98 mg/dL (65-100) 05/23/20 06:57 POC Glucose 156 mg/dL (70-105) H 05/22/20 13:20 Lactic Acid 1.70 mmol/L (0.7-2.0) 05/22/20 11:47 Calcium 8.8 mg/dL (8.4-10.2) 05/23/20 06:57 Total Bilirubin 0.40 mg/dL (0.1-1.2) 05/23/20 06:57 AST 15 units/L (5-40) 05/23/20 06:57 ALT 11 units/L (7-56) 05/23/20 06:57 Alkaline Phosphatase 69 units/L (35-129) 05/23/20 06:57 Total Creatine Kinase 176 units/L (30-135) H 05/22/20 11:47 CK-MB (CK-2) 2.3 ng/mL (0.0-4.0) 05/22/20 11:47 CK-MB (CK-2) Rel Index 1.3 (0-4) 05/22/20 11:47 Troponin T < 0.010 ng/mL (0.00-0.029) 05/22/20 14:14 Total Protein 6.4 g/dL (6.3-8.2) 05/23/20 06:57 Albumin 3.4 g/dL (3.9-5) L 05/23/20 06:57 Albumin/Globulin Ratio 1.1 % 05/23/20 06:57 Urine Color Yellow (Yellow) 05/22/20 12:06 Urine Turbidity Clear (Clear) 05/22/20 12:06 Urine pH 5.0 (5.0-7.0) 05/22/20 12:06 Ur Specific [place] 1.030 (1.003-1.030) 05/22/20 12:06 Urine Protein <15 mg/dl mg/dL (Negative) 05/22/20 12:06 Urine Glucose (UA) Neg mg/dL (Negative) 05/22/20 12:06 Urine Ketones Tr mg/dL (Negative) 05/22/20 12:06 Urine Blood Neg (Negative) 05/22/20 12:06 Urine Nitrite Neg (Negative) 05/22/20 12:06 Urine Bilirubin Neg (Negative) 05/22/20 12:06 Urine Urobilinogen < 2.0 mg/dL (<2.0) 05/22/20 12:06 Ur Leukocyte Esterase Neg (Negative) 05/22/20 12:06 Urine WBC (Auto) 1.0 /HPF (0.0-6.0) 05/22/20 12:06 Urine RBC (Auto) < 1.0 /HPF (0.0-6.0) 05/22/20 12:06 Urine Mucus Few /HPF 05/22/20 12:06 Salicylates 0.3 mg/dL (2.8-20.0) L 05/22/20 11:47 Urine Opiates Screen Negative 05/22/20 12:06 Urine Methadone Screen Negative 05/22/20 12:06 Acetaminophen 5.0 ug/mL (10.0-30.0) L 05/22/20 11:47 Ur Barbiturates Screen Negative 05/22/20 12:06 Ur Phencyclidine Scrn Negative 05/22/20 12:06 Ur Amphetamines Screen Negative 05/22/20 12:06 U Benzodiazepines Scrn Negative 05/22/20 12:06 Urine Cocaine Screen Negative 05/22/20 12:06 U Marijuana (THC) Screen Negative 05/22/20 12:06 Drugs of Abuse Note Disclamer 05/22/20 12:06 Plasma/Serum Alcohol < 0.01 % (0-0.07) 05/22/20 11:47 Microbiology: Microbiology 05/22/20 12:06 Peripheral/Venous Blood Culture - Preliminary Culture in Progress 05/22/20 12:00 Peripheral/Venous Blood Culture - Preliminary Culture in Progress Walker/IV: Voiding Method Incontinent Active Medications - Current Medications Current Medications: Generic Name Dose Route Start Last Admin Trade Name Freq PRN Reason Stop Dose Admin Acetaminophen 650 mg 05/22/20 13:31 Acetaminophen 325 Mg Tab PO Q4H PRN Pain MILD(1-3)/Fever >100.5/CHEN Sodium Chloride 1,000 mls @ 100 mls/hr 05/22/20 15:30 Nacl 0.9% 1000 Ml IV DIRECT DESTINEY Metoprolol Tartrate 25 mg 05/22/20 22:00 05/22/20 22:00 Metoprolol Tartrate 25 Mg Tab PO Not Given BID DESTINEY Ondansetron HCl 4 mg 05/22/20 13:31 Ondansetron 4 Mg/2 Ml Inj IV Q8H PRN Nausea And Vomiting Risperidone 0.25 mg 05/22/20 22:00 05/22/20 22:00 Risperidone 0.25 Mg Tab PO Not Given BID DESTINEY Sodium Chloride 10 ml 05/22/20 22:00 05/22/20 22:01 Sodium Chloride 0.9% 10 Ml Flush Syringe IV 10 ml BID DESTINEY Administration Sodium Chloride 10 ml 05/22/20 13:31 Sodium Chloride 0.9% 10 Ml Flush Syringe IV PRN PRN LINE FLUSH Nutrition/Malnutrition Assess - Dietary Evaluation Nutrition/Malnutrition Findings: Nutrition Notes Start: 05/23/20 09:57 Freq: Status: Active Protocol: Document 05/23/20 09:58 (Rec: 05/23/20 10:05 [id number]) Nutrition Notes Need for Assessment generated from: college dean,MST Initial or Follow up Assessment Current Diagnosis Acute Kidney Injury, Hypertension,Stroke Other Pertinent Diagnosis Dementia, A-fib, metabolic encephalopathy Current Diet NPO Labs/Tests BUN 19 Cr 1.4 Pertinent Medications Reviewed Height 5 ft 5 in Weight 91.172 kg [place] Body Weight (kg) 56.81 BMI 33.4 Weight Status Obese Subjective/Other Information RN screen for MST. Pt is unable to communicate clearly but able to nod yes or no. Pt reports weight gain recently. She states she is some what hungry and has some difficulty chewing and swallowing. Recommended GET[employer]ER consult to RN. Burn Absent Trauma Absent GI Symptoms None Difficulty In Swallowing,Chewing Current % PO Negligible Minimum of two criteria No physical signs of malnutrition #1 Nutrition Diagnosis Inadequate oral intake Etiology possible CVA, encephalopathy As Evidenced by Signs and Symptoms unable to consume PO Is patient on ventilator? No Is Patient Ambulatory and/or Out of Bed No REE-([facility]-confined to bed) 1659.792 Kcal/Kg value to use for calculation 14 Approximate Energy Requirements Using 1276 kcal/Kg Calculation Used for Recommendations Kcal/kg Additional Notes Protein: 59-89g (0.8-1.2 g/kg AdjBW: 74kg) Fluid: 1 ml/kcal Nutrition Intervention Change Diet Order: Advance as medically able Goal #1 Diet advancement as medically able Anticipated Discharge Needs: Unable to determine at this time Follow-Up By: 05/24/20 Additional Comments FU for diet advancement/plan of care
[2020-05-23] MEDS ORDERED: hydrALAZINE 20 MG/1 ML INJ IV PRN (12:34)
[2020-05-23] MEDS: METOPROLOL TARTRATE 25 MG TAB PO SCH ×2 (13:18→22:00)
[2020-05-23] MEDS: risperiDONE 0.25 MG TAB PO SCH ×2 (13:18→22:42)
[2020-05-23] MEDS: DONEPEZIL 10 MG TAB PO SCH (22:41)
[2020-05-23] MEDS: APIXABAN 5 MG TAB PO SCH (22:41)
[2020-05-24] MEDS: SODIUM CHLORIDE 0.9% 1000 ML 1,000 ML IV SCH ×2 (02:50→13:08)
--- NOTE | 2020-05-24 09:20 | Electrocardiograph Report ---
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
[2020-05-24] MEDS: risperiDONE 0.25 MG TAB PO SCH ×2 (10:00→21:09)
[2020-05-24] MEDS: METOPROLOL TARTRATE 25 MG TAB PO SCH ×2 (10:00→21:09)
[2020-05-24] MEDS: APIXABAN 5 MG TAB PO SCH ×2 (10:00→21:09)
--- NOTE | 2020-05-24 10:21 | Progress Note ---
Assessment and Plan Assessment and plan: 79 YO Female with HTN, Atrial Fib on Therapeutic Anticoagulation with Eliquis, CVA, Anxiety, Vascular Dementia with Behavioral Disturbance, Cerebral Atherosclerosis, OA presents to ED for evaluation. Pt is confused with diminished cognition at the time of my evaluation and is unable to provide history. Patient history taken from EMS staff, ED staff as well as the patient family who are available to speak by telephone. As per family, the patient has experienced increased confusion and agitation over the past 2 weeks with persistently worsening symptoms over the same timeframe. Patient was found to have decreased responsiveness today at around 1030 hrs. EMS was notified and upon arrival the patient was found to be in distress and subsequently transported to [facility] for further care and evaluation of the aforementioned symptoms. The patient was seen and evaluated in the emergency department. All lab and imaging studies reviewed. Patient found to have metabolic encephalopathy, hyponatremia, volume depletion, as well as acute kidney injury with acute tubular necrosis. The patient admitted to medical floor and initiated on IV fluid resuscitation therapy. No reports of fever, chills, chest pain, palpitations, productive cough, skin rash, trauma, recent ill contacts, or known exposure to COVID-19. No prior admission for review. All medication listed at time of admission has been reconciled. Advanced care planning conducted in ED. Patient has diminished cognition but has a positive gag reflex and is able to protect her airway without difficulty. 05/[address] of the head and Neck Has been negative for acute stroke. There is noted evidence of old infarcts in the bilateral parietal lobes. Patient continues to make remarkable hand gestures and quit both on her breath. While I believe that this may be more psychiatric than medical we will proceed with stroke work-up including MRI of the brain get neurology evaluation PT OT and speech. Start on aspirin and statin therapy. We will also get psychiatric evaluation. Also obtain an echocardiogram to evaluate for suspected mural thrombus. Spoke to who confirms stroke 8 years ago and concerned about her taking too many medicine. 05/24: Nurse tells me that the patient did speak yesterday. Again went back to examine gastro. Awaiting psych evaluation. Work-up still pending. Doubt CVA. Although will await work-up including MRI and neurology evaluation (1) acute metabolic encephalopathy (2) Vascular dementia with behavioral disturbance (3) Cerebral atherosclerosis (4) Acute kidney injury (ALYSSA) with acute tubular necrosis (ATN) (5) Atrial fibrillation (6) History of CVA (cerebrovascular accident) (7) possible underlining bipolar disorder. (8) DVT prophylaxis Current Visit: Yes Status: Acute Plan to address problem: SCD to bilateral lower extremities while in bed, continue therapeutic anticoagulation (9) Advance care planning Current Visit: Yes Status: Acute Plan to address problem: Disease education conducted, patient is full code, care plan discussed, prognosis discussed, diagnosis discussed, +30 minutes. History Interval history: Patient seen and examined, making hand gestures. Although overnight he was said that the patient spoke yesterday around 6 PM. Hospitalist Physical - Physical exam Narrative exam: VITAL SIGNS: Reviewed. GENERAL: The patient appears normally developed, very dramatic refuses to open her eyes vital signs as documented. HEAD: No signs of head trauma. EYES: Pupils are equal. Extraocular motions intact. EARS: Hearing grossly intact. MOUTH: Oropharynx is normal. NECK: No adenopathy, no JVD. CHEST: Chest with clear breath sounds bilaterally. No wheezes, rales, or rhonchi. CARDIAC: Regular rate and rhythm. S1 and S2, without murmurs, gallops, or rubs. VASCULAR: No Edema. Peripheral pulses normal and equal in all extremities. ABDOMEN: Soft, non tender and non distended. No rebound or guarding, and no masses palpated. Bowel Sounds normal. MUSCULOSKELETAL: Good range of motion of all major joints. Extremities without clubbing, cyanosis or edema. NEUROLOGIC EXAM: Alert and oriented x 3 No focal sensory or strength deficits. Speech is normal according to the nurse. Very dramatic presentation refuses to follow commands when hand is lifted up above her head she gradually drops it down after this was done 3 times she just kept it up and then after a few minutes gradually put it down. PSYCHIATRIC: Mood normal. SKIN: detail exam as documented in skin assessment - Constitutional Vitals: Temp Pulse Resp BP Pulse Ox 97.3 F L 109 H 20 163/85 95 05/24/20 07:11 05/24/20 07:11 05/24/20 07:11 05/24/20 07:11 05/24/20 07:11 General appearance: Present: mild distress, obese HEART Score - HEART Score Troponin: Troponin T < 0.010 ng/mL (0.00-0.029) 05/22/20 14:14 Results - Labs CBC & Chem 7: 05/23/20 06:57 05/23/20 06:57 Labs: Laboratory Last Values WBC 4.9 K/mm3 (4.5-11.0) 05/23/20 06:57 RBC 4.65 M/mm3 (3.65-5.03) 05/23/20 06:57 Hgb 12.1 gm/dl (10.1-14.3) 05/23/20 06:57 Hct 37.0 % (30.3-42.9) 05/23/20 06:57 MCV 79 fl (79-97) 05/23/20 06:57 MCH 26 pg (28-32) L 05/23/20 06:57 MCHC 33 % (30-34) 05/23/20 06:57 RDW 15.5 % (13.2-15.2) H 05/23/20 06:57 Plt Count 156 K/mm3 (140-440) 05/23/20 06:57 Lymph % (Auto) 17.7 % (13.4-35.0) 05/23/20 06:57 [place] % (Auto) 13.9 % (0.0-7.3) H 05/23/20 06:57 Eos % (Auto) 1.2 % (0.0-4.3) 05/23/20 06:57 Baso % (Auto) 0.3 % (0.0-1.8) 05/23/20 06:57 Lymph # (Auto) 0.9 K/mm3 (1.2-5.4) L 05/23/20 06:57 [place] # (Auto) 0.7 K/mm3 (0.0-0.8) 05/23/20 06:57 Eos # (Auto) 0.1 K/mm3 (0.0-0.4) 05/23/20 06:57 Baso # (Auto) 0.0 K/mm3 (0.0-0.1) 05/23/20 06:57 Seg Neutrophils % 66.9 % (40.0-70.0) 05/23/20 06:57 Seg Neutrophils # 3.3 K/mm3 (1.8-7.7) 05/23/20 06:57 PT 13.5 Sec. (12.2-14.9) 05/22/20 11:47 INR 1.05 (0.87-1.13) 05/22/20 11:47 APTT 23.5 Sec. (24.2-36.6) L 05/22/20 11:47 Thrombin Time 17.0 Sec. (15.1-19.6) 05/22/20 11:47 ABG pH 7.418 pH Units (7.350-7.450) 05/22/20 Unknown ABG pCO2 37.8 mm Hg 05/22/20 Unknown ABG pO2 81.2 mm Hg (80.0-90.0) 05/22/20 Unknown ABG HCO3 23.9 mmol/L (20.0-26.0) 05/22/20 Unknown ABG O2 Saturation 96.8 % (95.0-99.0) 05/22/20 Unknown ABG O2 Content 17.6 (0.0-44) 05/22/20 Unknown ABG Base Excess -0.3 mmol/L (-2.0-3.0) 05/22/20 Unknown ABG Hemoglobin 13.1 gm/dl (12.0-16.0) 05/22/20 Unknown ABG Carboxyhemoglobin 1.5 % (0.0-5.0) 05/22/20 Unknown ABG Methemoglobin 0.4 % (0.0-1.5) 05/22/20 Unknown Oxyhemoglobin 95.0 % (95.0-99.0) 05/22/20 Unknown FiO2 21 % 05/22/20 Unknown Sodium 140 mmol/L (137-145) D 05/23/20 06:57 Potassium 4.1 mmol/L (3.6-5.0) 05/23/20 06:57 Chloride 103.5 mmol/L (98-107) 05/23/20 06:57 Carbon Dioxide 23 mmol/L (22-30) 05/23/20 06:57 Anion Gap 18 mmol/L 05/23/20 06:57 BUN 19 mg/dL (7-17) H 05/23/20 06:57 Creatinine 1.4 mg/dL (0.6-1.2) H 05/23/20 06:57 Estimated GFR 44 ml/min 05/23/20 06:57 BUN/Creatinine Ratio 14 % 05/23/20 06:57 Glucose 98 mg/dL (65-100) 05/23/20 06:57 POC Glucose 156 mg/dL (70-105) H 05/22/20 13:20 Lactic Acid 1.70 mmol/L (0.7-2.0) 05/22/20 11:47 Calcium 8.8 mg/dL (8.4-10.2) 05/23/20 06:57 Total Bilirubin 0.40 mg/dL (0.1-1.2) 05/23/20 06:57 AST 15 units/L (5-40) 05/23/20 06:57 ALT 11 units/L (7-56) 05/23/20 06:57 Alkaline Phosphatase 69 units/L (35-129) 05/23/20 06:57 Total Creatine Kinase 176 units/L (30-135) H 05/22/20 11:47 CK-MB (CK-2) 2.3 ng/mL (0.0-4.0) 05/22/20 11:47 CK-MB (CK-2) Rel Index 1.3 (0-4) 05/22/20 11:47 Troponin T < 0.010 ng/mL (0.00-0.029) 05/22/20 14:14 Total Protein 6.4 g/dL (6.3-8.2) 05/23/20 06:57 Albumin 3.4 g/dL (3.9-5) L 05/23/20 06:57 Albumin/Globulin Ratio 1.1 % 05/23/20 06:57 Urine Color Yellow (Yellow) 05/22/20 12:06 Urine Turbidity Clear (Clear) 05/22/20 12:06 Urine pH 5.0 (5.0-7.0) 05/22/20 12:06 Ur Specific [place] 1.030 (1.003-1.030) 05/22/20 12:06 Urine Protein <15 mg/dl mg/dL (Negative) 05/22/20 12:06 Urine Glucose (UA) Neg mg/dL (Negative) 05/22/20 12:06 Urine Ketones Tr mg/dL (Negative) 05/22/20 12:06 Urine Blood Neg (Negative) 05/22/20 12:06 Urine Nitrite Neg (Negative) 05/22/20 12:06 Urine Bilirubin Neg (Negative) 05/22/20 12:06 Urine Urobilinogen < 2.0 mg/dL (<2.0) 05/22/20 12:06 Ur Leukocyte Esterase Neg (Negative) 05/22/20 12:06 Urine WBC (Auto) 1.0 /HPF (0.0-6.0) 05/22/20 12:06 Urine RBC (Auto) < 1.0 /HPF (0.0-6.0) 05/22/20 12:06 Urine Mucus Few /HPF 05/22/20 12:06 Salicylates 0.3 mg/dL (2.8-20.0) L 05/22/20 11:47 Urine Opiates Screen Negative 05/22/20 12:06 Urine Methadone Screen Negative 05/22/20 12:06 Acetaminophen 5.0 ug/mL (10.0-30.0) L 05/22/20 11:47 Ur Barbiturates Screen Negative 05/22/20 12:06 Ur Phencyclidine Scrn Negative 05/22/20 12:06 Ur Amphetamines Screen Negative 05/22/20 12:06 U Benzodiazepines Scrn Negative 05/22/20 12:06 Urine Cocaine Screen Negative 05/22/20 12:06 U Marijuana (THC) Screen Negative 05/22/20 12:06 Drugs of Abuse Note Disclamer 05/22/20 12:06 Plasma/Serum Alcohol < 0.01 % (0-0.07) 05/22/20 11:47 Microbiology: Microbiology 05/22/20 12:06 Peripheral/Venous Blood Culture - Preliminary NO GROWTH AFTER 24 HOURS 05/22/20 12:00 Peripheral/Venous Blood Culture - Preliminary NO GROWTH AFTER 24 HOURS Walker/IV: Voiding Method Incontinent Active Medications - Current Medications Current Medications: Generic Name Dose Route Start Last Admin Trade Name Freq PRN Reason Stop Dose Admin Acetaminophen 650 mg 05/22/20 13:31 Acetaminophen 325 Mg Tab PO Q4H PRN Pain MILD(1-3)/Fever >100.5/CHEN Apixaban 5 mg 05/23/20 22:00 05/23/20 22:41 Apixaban 5 Mg Tab PO 5 mg Q12HR DESTINEY Administration Protocol Atorvastatin Calcium 40 mg 05/23/20 22:00 05/23/20 22:41 Atorvastatin 40 Mg Tab PO 40 mg QHS DESTINEY Administration Donepezil HCl 10 mg 05/23/20 22:00 05/23/20 22:41 Donepezil 10 Mg Tab PO 10 mg QHS DESTINEY Administration Hydralazine HCl 10 mg 05/23/20 12:34 Hydralazine 20 Mg/1 Ml Inj IV Q4HR PRN Hypertension Sodium Chloride 1,000 mls @ 100 mls/hr 05/22/20 15:30 05/24/20 02:50 Nacl 0.9% 1000 Ml IV 100 mls/hr DIRECT DESTINEY Administration Metoprolol Tartrate 25 mg 05/22/20 22:00 05/23/20 22:00 Metoprolol Tartrate 25 Mg Tab PO 25 mg BID DESTINEY Administration Ondansetron HCl 4 mg 05/22/20 13:31 Ondansetron 4 Mg/2 Ml Inj IV Q8H PRN Nausea And Vomiting Risperidone 0.25 mg 05/22/20 22:00 05/23/20 22:42 Risperidone 0.25 Mg Tab PO 0.25 mg BID DESTINEY Administration Sodium Chloride 10 ml 05/22/20 22:00 05/23/20 22:42 Sodium Chloride 0.9% 10 Ml Flush Syringe IV Not Given BID DESTINEY Sodium Chloride 10 ml 05/22/20 13:31 Sodium Chloride 0.9% 10 Ml Flush Syringe IV PRN PRN LINE FLUSH Nutrition/Malnutrition Assess - Dietary Evaluation Nutrition/Malnutrition Findings: Nutrition Notes Start: 05/23/20 09:57 Freq: Status: Active Protocol: Document 05/23/20 09:58 (Rec: 05/23/20 10:05 [id number]) Nutrition Notes Need for Assessment generated from: certified home health aide,MST Initial or Follow up Assessment Current Diagnosis Acute Kidney Injury, Hypertension,Stroke Other Pertinent Diagnosis Dementia, A-fib, metabolic encephalopathy Current Diet NPO Labs/Tests BUN 19 Cr 1.4 Pertinent Medications Reviewed Height 5 ft 5 in Weight 91.172 kg Hamer Body Weight (kg) 56.81 BMI 33.4 Weight Status Obese Subjective/Other Information RN screen for MST. Pt is unable to communicate clearly but able to nod yes or no. Pt reports weight gain recently. She states she is some what hungry and has some difficulty chewing and swallowing. Recommended CUSTOMER SERVICE OPERATOR consult to RN. Burn Absent Trauma Absent GI Symptoms None Difficulty In Swallowing,Chewing Current % PO Negligible Minimum of two criteria No physical signs of malnutrition #1 Nutrition Diagnosis Inadequate oral intake Etiology possible CVA, encephalopathy As Evidenced by Signs and Symptoms unable to consume PO Is patient on ventilator? No Is Patient Ambulatory and/or Out of Bed No REE-([facility]-confined to bed) 1659.792 Kcal/Kg value to use for calculation 14 Approximate Energy Requirements Using 1276 kcal/Kg Calculation Used for Recommendations Kcal/kg Additional Notes Protein: 59-89g (0.8-1.2 g/kg AdjBW: 74kg) Fluid: 1 ml/kcal Nutrition Intervention Change Diet Order: Advance as medically able Goal #1 Diet advancement as medically able Anticipated Discharge Needs: Unable to determine at this time Follow-Up By: 05/24/20 Additional Comments FU for diet advancement/plan of care
--- NOTE | 2020-05-24 11:43 | Consultation ---
History of Present Illness - Reason for Consult Consult date: 05/24/20 Reason for consult: MHE Requesting physician: MARCELLA WOOD - Chief Complaint Chief complaint: She stopped responding - History of Present Psychiatric Illness Per Hospitalist: 79 YO Female with HTN, Atrial Fib on Therapeutic Anticoagulation with Eliquis, CVA, Anxiety, Vascular Dementia with Behavioral Disturbance, Cerebral Atherosclerosis, OA presents to ED for evaluation. Pt is confused with diminished cognition at the time of my evaluation and is unable to provide history. Patient history taken from EMS staff, ED staff as well as the patient family who are available to speak by telephone. As per family, the patient has experienced increased confusion and agitation over the past 2 weeks with persistently worsening symptoms over the same timeframe. Patient was found to have decreased responsiveness today at around 1030 hrs. EMS was notified and upon arrival the patient was found to be in distress and subsequently transported to [facility] for further care and evaluation of the aforementioned sym ptoms. The patient was seen and evaluated in the emergency department. All lab and imaging studies reviewed. Patient found to have metabolic encephalopathy, hyponatremia, volume depletion, as well as acute kidney injury with acute tubular necrosis. The patient admitted to medical floor and initiated on IV fluid resuscitation therapy. No reports of fever, chills, chest pain, palpitations, productive cough, skin rash, trauma, recent ill contacts, or known exposure to COVID-19. No prior admission for review. All medication listed at time of admission has been reconciled. Advanced care planning conducted in ED. Patient has diminished cognition but has a positive gag reflex and is able to protect her airway without difficulty. PSYCH HPI Patient is a 79 year AA female with past medical history of Dementia and other medical comorbidity presented to ED with reduced cognition per family member and was on code stroke. On exam, patient awake but not communicative and barely alert to any type of stimulus. Unable to conduct an interview. REVIEW OF SYSTEMS ROS cannot be reliably obtained from the patient due to reduced cognition MENTAL STATUS EXAMINATION General Appearance and Behavior: Age appropriate, good hygiene, wearing appropriate clothes, good eye contact, uncooperative with questioning. Cooperation: Withdrawn Psychomotor Behavior: unremarkable and within normal limits Mood: Neutral Affect and affective range: Flat Thought Process:N/A Thought Content: N/A Speech: Normal volume, Regular rate and rhythm Intellectual Functioning: N/A Suicidal Ideation: N/A l Homicidal Ideation: N/A Impulse Control: Impaired Insight and Judgment: Impaired Memory: N/A Attention: Normal, Orientation: Alert Assessment and Plan - Psychiatric problem (1) Encephalopathy Current Visit: Yes Status: Acute G93 Treatment Plan Pt with history of Dementia, presents with reduced cognition, complete flat affect and not audible. No acute psychiatric benefit seen with medication at this time. Will defer further management to medical team. NEURO WORK UP WITH MRI recommended Hold off all psychiatric medications until improvement in cognition, if any. MEDICATIONS: Risks, benefits and alternatives of medications discussed with the patient, questions answered and consent obtained from patient. PSYCHOTHERAPY: Supportive psychotherapy provided MEDICAL: Per primary team DELIRIUM PRECAUTIONS: Please re-orient patient frequently, keep lights on during the day, and minimize benzodiazepines and opiates as these medications could worsen patient's confusion. STORE SALES LEADER: DISPOSITION: Do Not Recommend acute inpatient psychiatric hospitalization at this time. Case discussed with Dr. Matt who agrees with current disposition LEGAL STATUS: FOLLOW-UP: Will sign off Thank you for the consult. Please contact with any questions and/or concerns. Medications and Allergies Allergies Allergy/AdvReac Type Severity Reaction Status Date / Time No Known Allergies Allergy Verified 03/16/17 16:38 Home Medications Medication Instructions Recorded Confirmed Last Taken Type Metoprolol [Lopressor TAB] 25 mg PO BID #60 tablet 01/23/15 Unknown Rx risperiDONE [RisperDAL] 0.25 mg PO BID #60 tablet 01/23/15 Unknown Rx Ibuprofen [Motrin] 400 mg PO Q8H PRN #15 tablet 03/17/17 Unknown Rx Active Meds: Active Medications Acetaminophen (Acetaminophen 325 Mg Tab) 650 mg PO Q4H PRN PRN Reason: Pain MILD(1-3)/Fever >100.5/CHEN Apixaban (Apixaban 5 Mg Tab) 5 mg PO Q12HR DESTINEY; Protocol Last Admin: 05/23/20 22:41 Dose: 5 mg Documented by: Atorvastatin Calcium (Atorvastatin 40 Mg Tab) 40 mg PO QHS DESTINEY Last Admin: 05/23/20 22:41 Dose: 40 mg Documented by: Donepezil HCl (Donepezil 10 Mg Tab) 10 mg PO QHS DESTINEY Last Admin: 05/23/20 22:41 Dose: 10 mg Documented by: Hydralazine HCl (Hydralazine 20 Mg/1 Ml Inj) 10 mg IV Q4HR PRN PRN Reason: Hypertension Sodium Chloride (Nacl 0.9% 1000 Ml) 1,000 mls @ 100 mls/hr IV DIRECT [facility] Last Admin: 05/24/20 02:50 Dose: 100 mls/hr Documented by: Metoprolol Tartrate (Metoprolol Tartrate 25 Mg Tab) 25 mg PO BID [facility] Last Admin: 05/23/20 22:00 Dose: 25 mg Documented by: Ondansetron HCl (Ondansetron 4 Mg/2 Ml Inj) 4 mg IV Q8H PRN PRN Reason: Nausea And Vomiting Risperidone (Risperidone 0.25 Mg Tab) 0.25 mg PO BID [facility] Last Admin: 05/23/20 22:42 Dose: 0.25 mg Documented by: Sodium Chloride (Sodium Chloride 0.9% 10 Ml Flush Syringe) 10 ml IV BID [facility] Last Admin: 05/23/20 22:42 Dose: Not Given Documented by: Sodium Chloride (Sodium Chloride 0.9% 10 Ml Flush Syringe) 10 ml IV PRN PRN PRN Reason: LINE FLUSH Mental Status Exam - Vital signs Last Vital Signs Temp 97.3 F L 05/24/20 07:11 Pulse 109 H 05/24/20 07:11 Resp 20 05/24/20 07:11 BP 163/85 05/24/20 07:11 Pulse Ox 95 05/24/20 07:11 Results Result Diagrams: 05/23/20 06:57 05/23/20 06:57 All other labs normal. Assessment and Plan - Psychiatric problem (1) Encephalopathy Current Visit: Yes Status: Acute
--- NOTE | 2020-05-24 18:01 | Consultation ---
History of Present Illness Consult date: 05/24/20 Reason for Consult: AMS Chief complaint: AMS History of present illness: 79 yo female with htn, afib (on Eliquis), vascular dementia, cva, who presents with 2 weeks of worsening encephalopathy with noted decreased responsiveness on the date of admission with atypical behavior noted during this admission where the patient appears to be responsive but at other times appears to possible choose not to speak. Patient's is concerned about polypharmacy related complication. Noted with acute renal insufficiency w/ electrolyte abnormality upon admission. Concern has been raised for a metabolic, psychiatric, and/or ischemic etiology. Past History Past Medical History: atrial fib, hypertension, stroke, other (vascular dementia) Past Surgical History: appendectomy, cataract removal, Other (Breast surgery) Social history: , lives with family Family history: hypertension Medications and Allergies Allergies Allergy/AdvReac Type Severity Reaction Status Date / Time No Known Allergies Allergy Verified 03/16/17 16:38 Home Medications Medication Instructions Recorded Confirmed Last Taken Type Metoprolol [Lopressor TAB] 25 mg PO BID #60 tablet 01/23/15 05/24/20 Unknown Rx risperiDONE [RisperDAL] 0.25 mg PO BID #60 tablet 01/23/15 05/24/20 Unknown Rx Ibuprofen [Motrin] 400 mg PO Q8H PRN #15 tablet 03/17/17 05/24/20 Unknown Rx Active Meds: Active Medications Acetaminophen (Acetaminophen 325 Mg Tab) 650 mg PO Q4H PRN PRN Reason: Pain MILD(1-3)/Fever >100.5/CHEN Apixaban (Apixaban 5 Mg Tab) 5 mg PO Q12HR DESTINEY; Protocol Last Admin: 05/24/20 10:00 Dose: Not Given Documented by: Atorvastatin Calcium (Atorvastatin 40 Mg Tab) 40 mg PO QHS DESTINEY Last Admin: 05/23/20 22:41 Dose: 40 mg Documented by: Donepezil HCl (Donepezil 10 Mg Tab) 10 mg PO QHS DESTINEY Last Admin: 05/23/20 22:41 Dose: 10 mg Documented by: Hydralazine HCl (Hydralazine 20 Mg/1 Ml Inj) 10 mg IV Q4HR PRN PRN Reason: Hypertension Sodium Chloride (Nacl 0.9% 1000 Ml) 1,000 mls @ 100 mls/hr IV DIRECT DESTINEY Last Admin: 05/24/20 13:08 Dose: 100 mls/hr Documented by: Metoprolol Tartrate (Metoprolol Tartrate 25 Mg Tab) 25 mg PO BID [facility] Last Admin: 05/24/20 10:00 Dose: Not Given Documented by: Ondansetron HCl (Ondansetron 4 Mg/2 Ml Inj) 4 mg IV Q8H PRN PRN Reason: Nausea And Vomiting Risperidone (Risperidone 0.25 Mg Tab) 0.25 mg PO BID [facility] Last Admin: 05/24/20 10:00 Dose: Not Given Documented by: Sodium Chloride (Sodium Chloride 0.9% 10 Ml Flush Syringe) 10 ml IV BID [facility] Last Admin: 05/24/20 10:09 Dose: 10 ml Documented by: Sodium Chloride (Sodium Chloride 0.9% 10 Ml Flush Syringe) 10 ml IV PRN PRN PRN Reason: LINE FLUSH Physical Examination - Vital Signs Vital Signs: Vital Signs Pulse Resp BP Pulse Ox 79 16 183/106 97 05/22/20 11:11 05/22/20 11:11 05/22/20 11:11 05/22/20 11:11 - Physical Exam Narrative exam: Teleneurology not available today. Results - Laboratory Findings CBC and BMP: 05/23/20 06:57 05/23/20 06:57 Abnormal Lab Findings: Abnormal Labs 05/22/20 05/22/20 05/22/20 11:47 11:47 11:47 MCH 26 L RDW 15.9 H [place] % (Auto) 7.4 H Lymph # (Auto) 1.0 L Seg Neutrophils % 72.4 H APTT 23.5 L Sodium 133 L Chloride 97.4 L BUN 22 H Creatinine 1.5 H POC Glucose Total Creatine Kinase 176 H Albumin 3.8 L Salicylates Acetaminophen 05/22/20 05/22/20 05/22/20 11:47 11:47 12:10 MCH RDW [place] % (Auto) Lymph # (Auto) Seg Neutrophils % APTT Sodium Chloride BUN Creatinine POC Glucose 69 L Total Creatine Kinase Albumin Salicylates 0.3 L Acetaminophen 5.0 L 05/22/20 05/23/20 05/23/20 13:20 06:57 06:57 MCH 26 L RDW 15.5 H [place] % (Auto) 13.9 H Lymph # (Auto) 0.9 L Seg Neutrophils % APTT Sodium Chloride BUN 19 H Creatinine 1.4 H POC Glucose 156 H Total Creatine Kinase Albumin 3.4 L Salicylates Acetaminophen Assessment and Plan 79 yo female with htn, afib (on Eliquis), vascular dementia, cva, who presents with 2 weeks of worsening encephalopathy with noted decreased responsiveness on the date of admission with atypical behavior. 1. Atypical Behavior / Conversion d/o - recommend MR Brain w/ wo contrast; diagnosis of exclusion. 2. Seizure - less likely but ordered EEG to confirm no evidence of intermittent ictal activity (EEG-1 hour ordered). 3. Metabolic Encephalopathy - agree w/ underlying infectious, nutritional, inflammatory workup, per primary team; noted renal insufficiency. Kamar Carcamo MD Neurology
[2020-05-24] MEDS ORDERED: LORazepam 2 MG/ML VIAL IV ONE (21:00)
[2020-05-24] MEDS: DONEPEZIL 10 MG TAB PO SCH (21:13)
[2020-05-25] MEDS: METOPROLOL TARTRATE 25 MG TAB PO SCH ×2 (10:32→23:10)
[2020-05-25] MEDS: APIXABAN 5 MG TAB PO SCH ×2 (10:32→23:11)
[2020-05-25] MEDS: risperiDONE 0.25 MG TAB PO SCH ×2 (10:32→23:10)
--- NOTE | 2020-05-25 11:16 | Progress Note ---
Assessment and Plan Assessment and plan: #Acute metabolic encephalopathy Improved Patient able to have a discussion today. Awaiting MRI and EEG. Neurology evaluation appreciated #Vascular dementia with behavioral disturbance #Acute kidney injury (ALYSSA) with acute tubular necrosis (ATN) #Atrial fibrillation #History of CVA (cerebrovascular accident) Continue aspirin #Possible underlining bipolar disorder. Psych evaluation appreciated DVT prophylaxis-SCDs, heparin History Interval history: Patient seen and examined at bedside this morning She is alert and oriented x2 Plan to have MRI brain and EEG as per neurology Hospitalist Physical - Physical exam Narrative exam: VITAL SIGNS: Reviewed. GENERAL: Awake HEAD: No signs of head trauma. EYES: Pupils are equal. Extraocular motions intact. MOUTH: Oropharynx is normal. NECK: No adenopathy, no JVD. CHEST: Chest with diminished breath sounds bilaterally. No wheezes, rales, or rhonchi. CARDIAC: normal S1 and S2, without murmurs, gallops, or rubs. ABDOMEN: Soft, non tender and non distended. No rebound or guarding, and no masses palpated. Bowel Sounds normal. MUSCULOSKELETAL: No edema NEUROLOGIC EXAM: Alert and oriented x2. No focal neurologic deficits SKIN: No obvious lesions - Constitutional Vitals: Temp Pulse Resp BP Pulse Ox 98.1 F 110 H 18 127/73 98 05/25/20 06:30 05/25/20 06:30 05/25/20 06:30 05/25/20 06:30 05/25/20 10:00 HEART Score - HEART Score Troponin: Troponin T < 0.010 ng/mL (0.00-0.029) 05/22/20 14:14 Results - Labs CBC & Chem 7: 05/23/20 06:57 05/23/20 06:57 Labs: Laboratory Last Values WBC 4.9 K/mm3 (4.5-11.0) 05/23/20 06:57 RBC 4.65 M/mm3 (3.65-5.03) 05/23/20 06:57 Hgb 12.1 gm/dl (10.1-14.3) 05/23/20 06:57 Hct 37.0 % (30.3-42.9) 05/23/20 06:57 MCV 79 fl (79-97) 05/23/20 06:57 MCH 26 pg (28-32) L 05/23/20 06:57 MCHC 33 % (30-34) 05/23/20 06:57 RDW 15.5 % (13.2-15.2) H 05/23/20 06:57 Plt Count 156 K/mm3 (140-440) 05/23/20 06:57 Lymph % (Auto) 17.7 % (13.4-35.0) 05/23/20 06:57 [place] % (Auto) 13.9 % (0.0-7.3) H 05/23/20 06:57 Eos % (Auto) 1.2 % (0.0-4.3) 05/23/20 06:57 Baso % (Auto) 0.3 % (0.0-1.8) 05/23/20 06:57 Lymph # (Auto) 0.9 K/mm3 (1.2-5.4) L 05/23/20 06:57 [place] # (Auto) 0.7 K/mm3 (0.0-0.8) 05/23/20 06:57 Eos # (Auto) 0.1 K/mm3 (0.0-0.4) 05/23/20 06:57 Baso # (Auto) 0.0 K/mm3 (0.0-0.1) 05/23/20 06:57 Seg Neutrophils % 66.9 % (40.0-70.0) 05/23/20 06:57 Seg Neutrophils # 3.3 K/mm3 (1.8-7.7) 05/23/20 06:57 PT 13.5 Sec. (12.2-14.9) 05/22/20 11:47 INR 1.05 (0.87-1.13) 05/22/20 11:47 APTT 23.5 Sec. (24.2-36.6) L 05/22/20 11:47 Thrombin Time 17.0 Sec. (15.1-19.6) 05/22/20 11:47 ABG pH 7.418 pH Units (7.350-7.450) 05/22/20 Unknown ABG pCO2 37.8 mm Hg 05/22/20 Unknown ABG pO2 81.2 mm Hg (80.0-90.0) 05/22/20 Unknown ABG HCO3 23.9 mmol/L (20.0-26.0) 05/22/20 Unknown ABG O2 Saturation 96.8 % (95.0-99.0) 05/22/20 Unknown ABG O2 Content 17.6 (0.0-44) 05/22/20 Unknown ABG Base Excess -0.3 mmol/L (-2.0-3.0) 05/22/20 Unknown ABG Hemoglobin 13.1 gm/dl (12.0-16.0) 05/22/20 Unknown ABG Carboxyhemoglobin 1.5 % (0.0-5.0) 05/22/20 Unknown ABG Methemoglobin 0.4 % (0.0-1.5) 05/22/20 Unknown Oxyhemoglobin 95.0 % (95.0-99.0) 05/22/20 Unknown FiO2 21 % 05/22/20 Unknown Sodium 140 mmol/L (137-145) D 05/23/20 06:57 Potassium 4.1 mmol/L (3.6-5.0) 05/23/20 06:57 Chloride 103.5 mmol/L (98-107) 05/23/20 06:57 Carbon Dioxide 23 mmol/L (22-30) 05/23/20 06:57 Anion Gap 18 mmol/L 05/23/20 06:57 BUN 19 mg/dL (7-17) H 05/23/20 06:57 Creatinine 1.4 mg/dL (0.6-1.2) H 05/23/20 06:57 Estimated GFR 44 ml/min 05/23/20 06:57 BUN/Creatinine Ratio 14 % 05/23/20 06:57 Glucose 98 mg/dL (65-100) 05/23/20 06:57 POC Glucose 156 mg/dL (70-105) H 05/22/20 13:20 Lactic Acid 1.70 mmol/L (0.7-2.0) 05/22/20 11:47 Calcium 8.8 mg/dL (8.4-10.2) 05/23/20 06:57 Total Bilirubin 0.40 mg/dL (0.1-1.2) 05/23/20 06:57 AST 15 units/L (5-40) 05/23/20 06:57 ALT 11 units/L (7-56) 05/23/20 06:57 Alkaline Phosphatase 69 units/L (35-129) 05/23/20 06:57 Total Creatine Kinase 176 units/L (30-135) H 05/22/20 11:47 CK-MB (CK-2) 2.3 ng/mL (0.0-4.0) 05/22/20 11:47 CK-MB (CK-2) Rel Index 1.3 (0-4) 05/22/20 11:47 Troponin T < 0.010 ng/mL (0.00-0.029) 05/22/20 14:14 Total Protein 6.4 g/dL (6.3-8.2) 05/23/20 06:57 Albumin 3.4 g/dL (3.9-5) L 05/23/20 06:57 Albumin/Globulin Ratio 1.1 % 05/23/20 06:57 Urine Color Yellow (Yellow) 05/22/20 12:06 Urine Turbidity Clear (Clear) 05/22/20 12:06 Urine pH 5.0 (5.0-7.0) 05/22/20 12:06 Ur Specific [place] 1.030 (1.003-1.030) 05/22/20 12:06 Urine Protein <15 mg/dl mg/dL (Negative) 05/22/20 12:06 Urine Glucose (UA) Neg mg/dL (Negative) 05/22/20 12:06 Urine Ketones Tr mg/dL (Negative) 05/22/20 12:06 Urine Blood Neg (Negative) 05/22/20 12:06 Urine Nitrite Neg (Negative) 05/22/20 12:06 Urine Bilirubin Neg (Negative) 05/22/20 12:06 Urine Urobilinogen < 2.0 mg/dL (<2.0) 05/22/20 12:06 Ur Leukocyte Esterase Neg (Negative) 05/22/20 12:06 Urine WBC (Auto) 1.0 /HPF (0.0-6.0) 05/22/20 12:06 Urine RBC (Auto) < 1.0 /HPF (0.0-6.0) 05/22/20 12:06 Urine Mucus Few /HPF 05/22/20 12:06 Salicylates 0.3 mg/dL (2.8-20.0) L 05/22/20 11:47 Urine Opiates Screen Negative 05/22/20 12:06 Urine Methadone Screen Negative 05/22/20 12:06 Acetaminophen 5.0 ug/mL (10.0-30.0) L 05/22/20 11:47 Ur Barbiturates Screen Negative 05/22/20 12:06 Ur Phencyclidine Scrn Negative 05/22/20 12:06 Ur Amphetamines Screen Negative 05/22/20 12:06 U Benzodiazepines Scrn Negative 05/22/20 12:06 Urine Cocaine Screen Negative 05/22/20 12:06 U Marijuana (THC) Screen Negative 05/22/20 12:06 Drugs of Abuse Note Disclamer 05/22/20 12:06 Plasma/Serum Alcohol < 0.01 % (0-0.07) 05/22/20 11:47 Microbiology: Microbiology 05/22/20 12:06 Peripheral/Venous Blood Culture - Preliminary NO GROWTH AFTER 48 HOURS 05/22/20 12:00 Peripheral/Venous Blood Culture - Preliminary NO GROWTH AFTER 48 HOURS Walker/IV: Voiding Method Incontinent Active Medications - Current Medications Current Medications: Generic Name Dose Route Start Last Admin Trade Name Freq PRN Reason Stop Dose Admin Acetaminophen 650 mg 05/22/20 13:31 Acetaminophen 325 Mg Tab PO Q4H PRN Pain MILD(1-3)/Fever >100.5/CHEN Apixaban 5 mg 05/23/20 22:00 05/25/20 10:32 Apixaban 5 Mg Tab PO 5 mg Q12HR DESTINEY Administration Protocol Atorvastatin Calcium 40 mg 05/23/20 22:00 05/24/20 21:09 Atorvastatin 40 Mg Tab PO 40 mg QHS DESTINEY Administration Donepezil HCl 10 mg 05/23/20 22:00 05/24/20 21:13 Donepezil 10 Mg Tab PO 10 mg QHS DESTINEY Administration Hydralazine HCl 10 mg 05/23/20 12:34 Hydralazine 20 Mg/1 Ml Inj IV Q4HR PRN Hypertension Sodium Chloride 1,000 mls @ 100 mls/hr 05/22/20 15:30 05/24/20 13:08 Nacl 0.9% 1000 Ml IV 100 mls/hr DIRECT DESTINEY Administration Metoprolol Tartrate 25 mg 05/22/20 22:00 05/25/20 10:32 Metoprolol Tartrate 25 Mg Tab PO 25 mg BID DESTINEY Administration Ondansetron HCl 4 mg 05/22/20 13:31 Ondansetron 4 Mg/2 Ml Inj IV Q8H PRN Nausea And Vomiting Risperidone 0.25 mg 05/22/20 22:00 05/25/20 10:32 Risperidone 0.25 Mg Tab PO 0.25 mg BID DESTINEY Administration Sodium Chloride 10 ml 05/22/20 22:00 05/24/20 21:10 Sodium Chloride 0.9% 10 Ml Flush Syringe IV 10 ml BID DESTINEY Administration Sodium Chloride 10 ml 05/22/20 13:31 Sodium Chloride 0.9% 10 Ml Flush Syringe IV PRN PRN LINE FLUSH Nutrition/Malnutrition Assess - Dietary Evaluation Nutrition/Malnutrition Findings: Nutrition Notes Start: 05/23/20 09:57 Freq: Status: Active Protocol: Document 05/23/20 09:58 CHRISTA (Rec: 05/23/20 10:05 CHRISTA [id number]) Nutrition Notes 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 Pt is unable to communicate clearly but able to nod yes or no. Pt reports weight gain recently. She states she is some what hungry and has some difficulty chewing and swallowing. Recommended TEST TECH consult to RN. Burn Absent Trauma Absent GI Symptoms None Difficulty In Swallowing,Chewing Current % PO Negligible Minimum of two criteria No physical signs of malnutrition #1 Nutrition Diagnosis Inadequate oral intake Etiology possible CVA, encephalopathy As Evidenced by Signs and Symptoms unable to consume PO Is patient on ventilator? No Is Patient Ambulatory and/or Out of Bed No REE-([facility]-confined to bed) 1659.792 Kcal/Kg value to use for calculation 14 Approximate Energy Requirements Using 1276 kcal/Kg Calculation Used for Recommendations Kcal/kg Additional Notes Protein: 59-89g (0.8-1.2 g/kg AdjBW: 74kg) Fluid: 1 ml/kcal Nutrition Intervention Change Diet Order: Advance as medically able Goal #1 Diet advancement as medically able Anticipated Discharge Needs: Unable to determine at this time Follow-Up By: 05/25/20 Additional Comments FU for diet advancement/plan of care
[2020-05-25] MEDS: SODIUM CHLORIDE 0.9% 1000 ML 1,000 ML IV SCH (16:30)
[2020-05-25] MEDS: DONEPEZIL 10 MG TAB PO SCH (23:11)
[2020-05-26] MEDS ORDERED: METOPROLOL TARTRATE 25 MG TAB PO SCH (07:46)
[2020-05-26] MEDS ORDERED: METOPROLOL TARTRATE 50 MG TAB PO SCH (08:00)
--- NOTE | 2020-05-26 10:55 | Progress Note ---
Assessment and Plan Assessment and plan: #Acute metabolic encephalopathy Improved Refused MRI brain as she refused to remove jewelry Neurology evaluation appreciated. Had an episode of unresponsiveness this AM. Eyes were open. CT head stat ordered EEG shows no epileptiform activity bus shows findings suggestive of metabolic encephalopathy. She will need continuous EEG monitoring which is not provided here. She will need transfer to a tertiary institution. Placed call to [facility]. #Vascular dementia with behavioral disturbance -Continue current medications #Acute kidney injury (ALYSSA) with acute tubular necrosis (ATN) - resolved #Atrial fibrillation - continue home medications - metoprolol and eliquis #History of CVA (cerebrovascular accident) Continue aspirin #Possible underlining bipolar disorder. Psych evaluation appreciated DVT prophylaxis-SCDs, eliquis History Interval history: 05/26. Patient seen and examined at bedside this morning She is alert and oriented x3 this morning. She refused MRI as she refused to remove jewelry. EEG was performed yesterday. Awaiting results She has been been seen by psych. No additional medications indicated at this time. Team signed off I told patient that if all studies were negative and she will be discharged - she started crying and I told her I will discuss with her and get back to her Moments later. Code met was called as patient became unresponsive. She was staring and was not respond to calls. STAT CT head ordered. Hospitalist Physical - Physical exam Narrative exam: VITAL SIGNS: Reviewed. GENERAL: Awake HEAD: No signs of head trauma. EYES: Pupils are equal. Extraocular motions intact. MOUTH: Oropharynx is normal. NECK: No adenopathy, no JVD. CHEST: Chest with diminished breath sounds bilaterally. No wheezes, rales, or rhonchi. CARDIAC: normal S1 and S2, without murmurs, gallops, or rubs. ABDOMEN: Soft, non tender and non distended. No rebound or guarding, and no masses palpated. Bowel Sounds normal. MUSCULOSKELETAL: No edema NEUROLOGIC EXAM: Alert and oriented x3. No focal neurologic deficits SKIN: No obvious lesions - Constitutional Vitals: Temp Pulse Resp BP Pulse Ox 98 F 91 H 20 114/91 100 05/26/20 10:37 05/26/20 10:37 05/26/20 10:37 05/26/20 10:37 05/26/20 10:37 HEART Score - HEART Score Troponin: Troponin T < 0.010 ng/mL (0.00-0.029) 05/22/20 14:14 Results - Labs CBC & Chem 7: 05/23/20 06:57 05/23/20 06:57 Labs: Laboratory Last Values WBC 4.9 K/mm3 (4.5-11.0) 05/23/20 06:57 RBC 4.65 M/mm3 (3.65-5.03) 05/23/20 06:57 Hgb 12.1 gm/dl (10.1-14.3) 05/23/20 06:57 Hct 37.0 % (30.3-42.9) 05/23/20 06:57 MCV 79 fl (79-97) 05/23/20 06:57 MCH 26 pg (28-32) L 05/23/20 06:57 MCHC 33 % (30-34) 05/23/20 06:57 RDW 15.5 % (13.2-15.2) H 05/23/20 06:57 Plt Count 156 K/mm3 (140-440) 05/23/20 06:57 Lymph % (Auto) 17.7 % (13.4-35.0) 05/23/20 06:57 [place] % (Auto) 13.9 % (0.0-7.3) H 05/23/20 06:57 Eos % (Auto) 1.2 % (0.0-4.3) 05/23/20 06:57 Baso % (Auto) 0.3 % (0.0-1.8) 05/23/20 06:57 Lymph # (Auto) 0.9 K/mm3 (1.2-5.4) L 05/23/20 06:57 [place] # (Auto) 0.7 K/mm3 (0.0-0.8) 05/23/20 06:57 Eos # (Auto) 0.1 K/mm3 (0.0-0.4) 05/23/20 06:57 Baso # (Auto) 0.0 K/mm3 (0.0-0.1) 05/23/20 06:57 Seg Neutrophils % 66.9 % (40.0-70.0) 05/23/20 06:57 Seg Neutrophils # 3.3 K/mm3 (1.8-7.7) 05/23/20 06:57 PT 13.5 Sec. (12.2-14.9) 05/22/20 11:47 INR 1.05 (0.87-1.13) 05/22/20 11:47 APTT 23.5 Sec. (24.2-36.6) L 05/22/20 11:47 Thrombin Time 17.0 Sec. (15.1-19.6) 05/22/20 11:47 ABG pH 7.418 pH Units (7.350-7.450) 05/22/20 Unknown ABG pCO2 37.8 mm Hg 05/22/20 Unknown ABG pO2 81.2 mm Hg (80.0-90.0) 05/22/20 Unknown ABG HCO3 23.9 mmol/L (20.0-26.0) 05/22/20 Unknown ABG O2 Saturation 96.8 % (95.0-99.0) 05/22/20 Unknown ABG O2 Content 17.6 (0.0-44) 05/22/20 Unknown ABG Base Excess -0.3 mmol/L (-2.0-3.0) 05/22/20 Unknown ABG Hemoglobin 13.1 gm/dl (12.0-16.0) 05/22/20 Unknown ABG Carboxyhemoglobin 1.5 % (0.0-5.0) 05/22/20 Unknown ABG Methemoglobin 0.4 % (0.0-1.5) 05/22/20 Unknown Oxyhemoglobin 95.0 % (95.0-99.0) 05/22/20 Unknown FiO2 21 % 05/22/20 Unknown Sodium 140 mmol/L (137-145) D 05/23/20 06:57 Potassium 4.1 mmol/L (3.6-5.0) 05/23/20 06:57 Chloride 103.5 mmol/L (98-107) 05/23/20 06:57 Carbon Dioxide 23 mmol/L (22-30) 05/23/20 06:57 Anion Gap 18 mmol/L 05/23/20 06:57 BUN 19 mg/dL (7-17) H 05/23/20 06:57 Creatinine 1.4 mg/dL (0.6-1.2) H 05/23/20 06:57 Estimated GFR 44 ml/min 05/23/20 06:57 BUN/Creatinine Ratio 14 % 05/23/20 06:57 Glucose 98 mg/dL (65-100) 05/23/20 06:57 POC Glucose 156 mg/dL (70-105) H 05/22/20 13:20 Lactic Acid 1.70 mmol/L (0.7-2.0) 05/22/20 11:47 Calcium 8.8 mg/dL (8.4-10.2) 05/23/20 06:57 Total Bilirubin 0.40 mg/dL (0.1-1.2) 05/23/20 06:57 AST 15 units/L (5-40) 05/23/20 06:57 ALT 11 units/L (7-56) 05/23/20 06:57 Alkaline Phosphatase 69 units/L (35-129) 05/23/20 06:57 Total Creatine Kinase 176 units/L (30-135) H 05/22/20 11:47 CK-MB (CK-2) 2.3 ng/mL (0.0-4.0) 05/22/20 11:47 CK-MB (CK-2) Rel Index 1.3 (0-4) 05/22/20 11:47 Troponin T < 0.010 ng/mL (0.00-0.029) 05/22/20 14:14 Total Protein 6.4 g/dL (6.3-8.2) 05/23/20 06:57 Albumin 3.4 g/dL (3.9-5) L 05/23/20 06:57 Albumin/Globulin Ratio 1.1 % 05/23/20 06:57 Urine Color Yellow (Yellow) 05/22/20 12:06 Urine Turbidity Clear (Clear) 05/22/20 12:06 Urine pH 5.0 (5.0-7.0) 05/22/20 12:06 Ur Specific [place] 1.030 (1.003-1.030) 05/22/20 12:06 Urine Protein <15 mg/dl mg/dL (Negative) 05/22/20 12:06 Urine Glucose (UA) Neg mg/dL (Negative) 05/22/20 12:06 Urine Ketones Tr mg/dL (Negative) 05/22/20 12:06 Urine Blood Neg (Negative) 05/22/20 12:06 Urine Nitrite Neg (Negative) 05/22/20 12:06 Urine Bilirubin Neg (Negative) 05/22/20 12:06 Urine Urobilinogen < 2.0 mg/dL (<2.0) 05/22/20 12:06 Ur Leukocyte Esterase Neg (Negative) 05/22/20 12:06 Urine WBC (Auto) 1.0 /HPF (0.0-6.0) 05/22/20 12:06 Urine RBC (Auto) < 1.0 /HPF (0.0-6.0) 05/22/20 12:06 Urine Mucus Few /HPF 05/22/20 12:06 Salicylates 0.3 mg/dL (2.8-20.0) L 05/22/20 11:47 Urine Opiates Screen Negative 05/22/20 12:06 Urine Methadone Screen Negative 05/22/20 12:06 Acetaminophen 5.0 ug/mL (10.0-30.0) L 05/22/20 11:47 Ur Barbiturates Screen Negative 05/22/20 12:06 Ur Phencyclidine Scrn Negative 05/22/20 12:06 Ur Amphetamines Screen Negative 05/22/20 12:06 U Benzodiazepines Scrn Negative 05/22/20 12:06 Urine Cocaine Screen Negative 05/22/20 12:06 U Marijuana (THC) Screen Negative 05/22/20 12:06 Drugs of Abuse Note Disclamer 05/22/20 12:06 Plasma/Serum Alcohol < 0.01 % (0-0.07) 05/22/20 11:47 Microbiology: Microbiology 05/22/20 12:06 Peripheral/Venous Blood Culture - Preliminary NO GROWTH AFTER 72 HOURS 05/22/20 12:00 Peripheral/Venous Blood Culture - Preliminary NO GROWTH AFTER 72 HOURS Walker/IV: Voiding Method Incontinent Active Medications - Current Medications Current Medications: Generic Name Dose Route Start Last Admin Trade Name Freq PRN Reason Stop Dose Admin Acetaminophen 650 mg 05/22/20 13:31 Acetaminophen 325 Mg Tab PO Q4H PRN Pain MILD(1-3)/Fever >100.5/CHEN Apixaban 5 mg 05/23/20 22:00 05/25/20 23:11 Apixaban 5 Mg Tab PO 5 mg Q12HR DESTINEY Administration Protocol Atorvastatin Calcium 40 mg 05/23/20 22:00 05/25/20 23:10 Atorvastatin 40 Mg Tab PO 40 mg QHS DESTINEY Administration Donepezil HCl 10 mg 05/23/20 22:00 05/25/20 23:11 Donepezil 10 Mg Tab PO 10 mg QHS DESTINEY Administration Hydralazine HCl 10 mg 05/23/20 12:34 Hydralazine 20 Mg/1 Ml Inj IV Q4HR PRN Hypertension Sodium Chloride 1,000 mls @ 100 mls/hr 05/22/20 15:30 05/25/20 16:30 Nacl 0.9% 1000 Ml IV 100 mls/hr DIRECT DESTINEY Administration Metoprolol Tartrate 50 mg 05/26/20 08:00 Metoprolol Tartrate 50 Mg Tab PO BID DESTINEY Ondansetron HCl 4 mg 05/22/20 13:31 Ondansetron 4 Mg/2 Ml Inj IV Q8H PRN Nausea And Vomiting Risperidone 0.25 mg 05/22/20 22:00 05/25/20 23:10 Risperidone 0.25 Mg Tab PO 0.25 mg BID DESTINEY Administration Sodium Chloride 10 ml 05/22/20 22:00 05/25/20 23:11 Sodium Chloride 0.9% 10 Ml Flush Syringe IV 10 ml BID DESTINEY Administration Sodium Chloride 10 ml 05/22/20 13:31 Sodium Chloride 0.9% 10 Ml Flush Syringe IV PRN PRN LINE FLUSH Nutrition/Malnutrition Assess - Dietary Evaluation Nutrition/Malnutrition Findings: Nutrition Notes Start: 05/23/20 09:57 Freq: Status: Active Protocol: Document 05/25/20 13:16 CW (Rec: 05/25/20 13:30 CW [id number]) Nutrition Notes Initial or Follow up Reassessment Current Diagnosis Acute Kidney Injury, Hypertension,Stroke Other Pertinent Diagnosis Dementia, A-fib, metabolic encephalopathy Current Diet NPO Labs/Tests No new labs Pertinent Medications Reviewed Height 5 ft 5 in Weight 92.2 kg [place] Body Weight (kg) 56.81 BMI 33.8 Weight Status Obese Subjective/Other Information F/U for diet advacnedment and POC. Pt unable to fully communicate; is able to say some words with strain. Nods and uses hand gestures to communicate. Pt remains NPO at this time. Reports having an appetite and wondering when she will begin receiving meals . [employer] recently consulted with pt and cleared pt for pureed woth thin liquids Percent of energy/protein needs met: 0%/0% Burn Absent Trauma Absent GI Symptoms None Difficulty In Swallowing,Chewing Current % PO Negligible Minimum of two criteria No physical signs of malnutrition #1 Nutrition Diagnosis Inadequate oral intake Diagnosis Progress(for reassessment Continues documentation) Is patient on ventilator? No Is Patient Ambulatory and/or Out of Bed No REE-([facility]-confined to bed) 1672.116 Kcal/Kg value to use for calculation 14 Approximate Energy Requirements Using 1291 kcal/Kg Calculation Used for Recommendations Kcal/kg Additional Notes Protein: 59-89g (0.8-1.2 g/kg AdjBW: 74kg) Fluid: 1 ml/kcal Nutrition Intervention Change Diet Order: Pureed with thin liquids Goal #1 PO intake that meets at least 75% of kcal and protein needs Anticipated Discharge Needs: Unable to determine at this time Follow-Up By: 05/27/20 Additional Comments F/u for diet toleration and federico for ONS
--- NOTE | 2020-05-26 11:09 | Progress Note ---
Assessment and Plan 79 yo female with htn, afib (on Eliquis), vascular dementia, cva, who presents with 2 weeks of worsening encephalopathy with noted decreased responsiveness on the date of admission with atypical behavior. 1. Atypical Behavior / Conversion d/o - recommend MR Brain w/ wo contrast; diagnosis of exclusion. 2. Seizure - less likely but ordered EEG to confirm no evidence of intermittent ictal activity (EEG-1 hour ordered). 3. Metabolic Encephalopathy - agree w/ underlying infectious, nutritional, inflammatory workup, per primary team; noted renal insufficiency. 4. RECOMMEND transfer of patient to a higher level of care to a facility with continuous EEG monitoring to capture any more events to help differentiate between organic and non-organic etiologies. Case discussed the primary attending. Kamar Carcamo MD Neurology Subjective Date of service: 05/26/20 Principal diagnosis: AMS Interval history: Noted with an episode where the patient became unresponsive. Spoke to primary attending who was concerned about a non-organic etiology. Patient is refusing MR Brain. Objective - Exam Narrative Exam: Teleneurology not available today. - Vital Sign Vital Signs - 12hr 05/25/20 05/26/20 05/26/20 23:10 06:45 10:37 Temperature 98.8 F 98 F Pulse Rate 117 H 114 H 91 H Respiratory 20 20 Rate Blood Pressure 147/59 149/88 Blood Pressure 114/91 [Right] O2 Sat by Pulse 86 99 100 Oximetry - Laboratory Findings CBC and BMP: 05/23/20 06:57 05/23/20 06:57 Abnormal Lab Findings: Abnormal Labs 05/22/20 05/22/20 05/22/20 11:47 11:47 11:47 MCH 26 L RDW 15.9 H [place] % (Auto) 7.4 H Lymph # (Auto) 1.0 L Seg Neutrophils % 72.4 H APTT 23.5 L Sodium 133 L Chloride 97.4 L BUN 22 H Creatinine 1.5 H POC Glucose Total Creatine Kinase 176 H Albumin 3.8 L Salicylates Acetaminophen 05/22/20 05/22/20 05/22/20 11:47 11:47 12:10 MCH RDW [place] % (Auto) Lymph # (Auto) Seg Neutrophils % APTT Sodium Chloride BUN Creatinine POC Glucose 69 L Total Creatine Kinase Albumin Salicylates 0.3 L Acetaminophen 5.0 L 05/22/20 05/23/20 05/23/20 13:20 06:57 06:57 MCH 26 L RDW 15.5 H [place] % (Auto) 13.9 H Lymph # (Auto) 0.9 L Seg Neutrophils % APTT Sodium Chloride BUN 19 H Creatinine 1.4 H POC Glucose 156 H Total Creatine Kinase Albumin 3.4 L Salicylates Acetaminophen
--- NOTE | 2020-05-26 11:30 | Cat Scan Report ---
CT BRAIN: 05/26/2020 INDICATION / CLINICAL INFORMATION: MAIN. Altered mental status COMPARISON: CT brain 05/22/2020 FINDINGS: BRAIN/INTRACRANIAL STRUCTURES: Unenhanced CT images of the brain were obtained and compared to the pr ior exam from 05/22/2020. There is been no change. There is no evidence of acute abnormality. Pronounced diffuse cerebral atrophy, extensive chronic whi te matter hypoattenuation, and old areas of cortical ischemic injury in the parietal lobes bilaterall y are again noted. There is no CT evidence of acute large vessel territory ischemic injury, hemorrhage, or mass. There a re no abnormal extra-axial fluid collections. EXTRACRANIAL STRUCTURES: Unremarkable. IMPRESSION: No acute abnormality. Extensive chronic and age-related changes, stable when compared to 05/22/2020. All CT scans at this location are performed using dose reduction to ALARA by means of automated expos ure control. Signer Name: Wayne Teresa MD Signed: 05/26/2020 11:26 AM Workstation Name: [id number]
[2020-05-26] MEDS: APIXABAN 5 MG TAB PO SCH (12:25)
[2020-05-26] MEDS: risperiDONE 0.25 MG TAB PO SCH (12:25)
[2020-05-26] MEDS ORDERED: METOPROLOL TARTRATE 5 MG/5 ML INJ IV NR (14:20)
[2020-05-26] MEDS ORDERED: LORazepam 2 MG/ML VIAL IV NR ×2 (14:20→16:30)
--- NOTE | 2020-05-26 14:59 | Discharge Summary ---
Providers - Providers Date of Admission: 05/22/20 14:39 Date of discharge: 05/26/20 Attending physician: BERNADETTE ESCALANTE 05/23/20 11:18 Occupational Therapy Evaluate and Treat [CONS] Routine Comment: Reason For Exam: debility Physical Therapy Evaluation and Treat [CONS] Routine Comment: Reason For Exam: debility 05/23/20 11:19 Consult to Physician [CONS] Routine Comment: Consulting Provider: ADENIKE NAYAK Physician Instructions: Reason For Exam: AMS Speech Therapy Evaluation and Treat [CONS] Routine Reason For Exam: APHASIA 05/23/20 13:20 Consult to Physician [CONS] Routine Comment: Consulting Provider: NICK FLANNERY Physician Instructions: Reason For Exam: AMS, ?DEMENTIA, BIPOLAR Primary care physician: [employer] ENGINEER Hospitalization Condition: Stable Hospital course: 79 YO Female with HTN, Atrial Fib on Therapeutic Anticoagulation with Eliquis, CVA, Anxiety, Vascular Dementia with Behavioral Disturbance, Cerebral Atherosclerosis, OA presents to ED for evaluation. Pt is confused with diminished cognition at the time of evaluation and is unable to provide history. Patient history taken from EMS staff, ED staff as well as the patient family who are available to speak by telephone. As per family, the patient has experienced increased confusion and agitation over the past 2 weeks with persistently worsening symptoms over the same timeframe. Patient was found to have decreased responsiveness on the day of presentstion at around 1030 hrs. EMS was notified and was subsequently transported to [facility] for further care and evaluation of the aforementioned symptoms. The patient was seen and evaluated in the emergency department. All lab and imaging studies reviewed. Patient was found to have metabolic encephalopathy, hyponatremia, volume depletion, as well as acute kidney injury with acute tubular necrosis. The patient admitted to medical floor and initiated on IV fluid resuscitation therapy. No reports of fever, chills, chest pain, palpitations, productive cough, skin rash, trauma, recent ill contacts, or known exposure to COVID-19. No prior admission for review. All medication listed at time of admission has been reconciled. Advanced care planning conducted in ED. Patient has diminished cognition but has a positive gag reflex and is able to protect her airway without difficulty. Hospital course 05/23. Her CT of the head and Neck Has been negative for acute stroke. There is noted evidence of old infarcts in the bilateral parietal lobes. Patient continues to make remarkable hand gestures. While I believe that this may be more psychiatric than medical we will proceed with stroke work-up including MRI of the brain get neurology evaluation PT OT and speech. Start on aspirin and statin therapy. We will also get psychiatric evaluation. Also obtain an echocardiogram to evaluate for suspected mural thrombus. Patient sodium has improved. Renal function also improved as well. Spoke to who confirms stroke 8 years ago and concerned about her taking too many medicine. 05/24: Nurse tells me that the patient did speak yesterday. Awaiting psych evaluation. Work-up still pending. Doubt CVA. Although will await work-up including MRI and neurology evaluation 05/25. Patient was seen by neurology who recommended an EEG and MRI brain. Harsh pacheco was also seen by psychiatry who recommended no need for acute inpatient hospitalization at this time. Patient refused an MRI brain as she is she did not want to have her jewelry removed. Review of prior hospitalization here showed the patient admitted 6 yrs ago with similar symptoms while inpatient. At that time, she had an MRI of the brain that was negative for any acute pathology. EEG was performed today 05/26. Patient seen and examined at bedside this morning. She is alert and oriented x3 this morning. She refused MRI as she refused to remove jewelry. EEG was performed yesterday. Awaiting results She has been been seen by psych. No additional medications indicated at this time. Team signed off I told patient that if all studies were negative and she will be discharged - s he started crying and I told her I will discuss with her and get back to her Moments later. Code met was called as patient became unresponsive. She was staring and was not responding to calls. STAT CT head ordered. [address] head showed no acute pathology. EEG performed 05/25 showed no obvious seizures but positive for encephalopathy. Discussed with neurology, patient will need to be transferred to a tertiary care for continuous EEG monitoring. Patient reportedly became responsive after STAT CT head. Transfer for continuous EEG at [facility] initiated. 2 PM. Patient has been accepted continuous EEG monitoring at [facility]. Discussed with patient's , Brenden and he agrees with current plan. Patient still remains alert and oriented x3 during my reevaluation. Patient refused oral medications this AM. Heart rate is elevated so patient received metoprolol 2.5 mg IV. Patient will be discharged to [facility] for continuous EEG monitoring. I discussed with [facility] neurologist-Dr. Horn. RN updated. Disposition: [id number]/TX-[id number] ANOTHER TYPE HLTHCARE Final Discharge Diagnosis (Prints w/discharge instructions): Possible seizures Time spent for discharge: 40 minutes Core Measure Documentation - Palliative Care Palliative Care/ Comfort Measures: Not Applicable - Core Measures Any of the following diagnoses?: none Exam - Physical Exam Narrative exam: VITAL SIGNS: Reviewed. GENERAL: Awake HEAD: No signs of head trauma. EYES: Pupils are equal. Extraocular motions intact. MOUTH: Oropharynx is normal. NECK: No adenopathy, no JVD. CHEST: Chest with diminished breath sounds bilaterally. No wheezes, rales, or rhonchi. CARDIAC: normal S1 and S2, without murmurs, gallops, or rubs. ABDOMEN: Soft, non tender and non distended. No rebound or guarding, and no masses palpated. Bowel Sounds normal. MUSCULOSKELETAL: No edema NEUROLOGIC EXAM: Alert and oriented x3. No focal neurologic deficits SKIN: No obvious lesions - Constitutional Vitals: Temp Pulse Resp BP Pulse Ox 98 F 91 H 20 114/91 100 05/26/20 10:37 05/26/20 10:37 05/26/20 10:37 05/26/20 10:37 05/26/20 10:37 Plan Follow up with: PRIMARY MD AYLEEN [Primary Care Provider] - 3-5 Days
[2020-05-26 15:41] VITALS: BP 172/94
--- NOTE | 2020-05-27 11:07 | Electrocardiograph Report ---
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
== END 2020-05-26 16:35 | disposition short-term general hospital (02) | DRG 70 ==
LOC: ED 11:01 → 3A 14:39
PROVIDERS: ADMIT Internal Medicine; ATTEND Internal Medicine
PROC: 4A033R1 Measurement of Arterial Saturation, Peripheral, Percutaneous Approach (ICD-10-PCS; principal; 2020-05-22)
DX: G93.41 Metabolic encephalopathy (principal); N17.0 Acute kidney failure with tubular necrosis; E87.1 Hypo-osmolality and hyponatremia; F01.51 Vascular dementia, unspecified severity, with behavioral disturbance; I48.11 Longstanding persistent atrial fibrillation; I16.1 Hypertensive emergency; I67.2 Cerebral atherosclerosis; E66.9 Obesity, unspecified; I48.91 Unspecified atrial fibrillation; F41.9 Anxiety disorder, unspecified; F01.50 Vascular dementia, unspecified severity, without behavioral disturbance, psychotic disturbance, mood disturbance, and anxiety; M19.90 Unspecified osteoarthritis, unspecified site; E86.9 Volume depletion, unspecified; R29.721 NIHSS score 21; Z79.899 Other long term (current) drug therapy; Z68.33 Body mass index [BMI] 33.0-33.9, adult; Z79.891 Long term (current) use of opiate analgesic; Z79.01 Long term (current) use of anticoagulants; Z98.49 Cataract extraction status, unspecified eye; Z90.49 Acquired absence of other specified parts of digestive tract; Z86.73 Personal history of transient ischemic attack (TIA), and cerebral infarction without residual deficits; Z82.49 Family history of ischemic heart disease and other diseases of the circulatory system
CPT/HCPCS: 36415; 36600; 70450; 70496; 70498; 71045; 80053; 80307; 80320; 81001; 82140; 82550; 82553; 82803; 82962; 84484; 85025; 85610; 85670; 85730; 87040; 93005; 93306; 94760; 95819; 96361; 96365; 96366; 96367; 96375; G0378; A9270-GY; G0480; J0692; J2060; J2310; J7030; Q9967